=== PATIENT | female | born 2000 | race Caucasian/White ===

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

== ENCOUNTER 2019-03-16 14:01 | Emergency (ER) | payer MEDICAID, SELFPAY ==
[2019-03-16 14:02] VITALS: BP 117/76; PULSE 111; RESP 16; TEMP 36.6; O2SAT 98; BMI 17.3
[2019-03-16 15:20] LABS: Absolute Lymphocyte Count 1.03 X10^3/uL (0.83-4.51); Absolute Neutrophil Count 8.4 X10^3/uL (2.0-7.7); Basophil# 0.02 X10^3/uL; Basophil% 0.2 % (0-1); Eosinophil# 0.02 X10^3/uL; Eosinophils% 0.2 % (0-5); Hemoglobin 13.3 g/dL (12.0-15.0); Lymphocyte # 1.03 X10^3/ul (4.0); Lymphocyte % 10.1 % (19-41); Mean Corp Hgb Conc 32.4 g/dL (32-36); Mean Corpuscular Hgb 29.8 pg (27.0-32.0); Mean Corpuscular Volume 91.9 fL (81-99); Mean Platelet Vol. 10.1 fl (6.2-12.0); Monocyte% 6.9 % (0-10); NRBC Flagged by Analyzer 0 % (0-5); Neutrophil # 8.36 X10^3/uL (2.7-7.7); Neutrophil % 82.1 % (47-70); Platelet Count 239 K/mm3 (150-450); RBC Distribution Width CV 12.6 % (11.6-14.6); RBC Distribution Width SD 42.4 fl (35.1-43.9); Red Blood Count 4.46 M/mm3 (4.2-5.4); White Blood Count 10.2 K/mm3 (4.4-11.0)
[2019-03-16 15:34] LABS: Anion Gap 5 (5-15); BUN 7 mg/dL (7-18); BUN/Creat Ratio 9.4 RATIO (10-20); Calcium,Total 9.5 mg/dL (8.5-10.1); Chloride 109 mmol/L (98-107); Creatinine, Serum 0.74 mg/dL (0.55-1.02); EST Glomerular Filtration Rate 106 mL/min (>60); Est Glom Filt Rate - Afr Amer 128 mL/min (>60); Estimated Creatinine Clearance 88.44 ml/min; Glucose 83 mg/dL (74-106); Potassium 3.6 mmol/L (3.5-5.1); Sodium Level 142 mmol/L (136-145)
[2019-03-16 15:35] LABS: Internal QC Validated? YES +Cl - CLEAR BKGD; Pregnancy, Serum, hCG Quali. NEGATIVE Negative
[2019-03-16 15:40] LABS: Amphetamine Urine VISTA NEGATIVE (<1000 ng/mL); Barbiturate Urine VISTA NEGATIVE (< 200 ng/mL); Benzodiazepine Urine VISTA NEGATIVE (< 200 ng/mL); Cocaine Urine VISTA NEGATIVE (< 300 ng/mL); Ecstacy Urine VISTA NEGATIVE (< 500 ng/mL); Methadone Urine VISTA NEGATIVE (< 300 ng/mL); PCP Urine VISTA NEGATIVE (< 25 ng/mL); THC Urine VISTA POSITIVE (< 50 ng/mL); Vista UDS pH Range 6
[2019-03-16 15:46] LABS: Alcohol, Blood (Medical)-Serum < 3.0 mg/dL
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
[2019-03-16 16:25] LABS: AST(SGOT) 14 U/L (15-37); Alanine Aminotransfer ALT/SGPT 15 U/L (13-56); Albumin, Serum 4.3 g/dL (3.2-5.0); Alkaline Phosphatase 83 U/L (45-117); Bilirubin, Direct 0.12 mg/dL (0.00-0.30); Globulin 3.4 g/dL (2.2-4.2); Protein, Total 7.7 g/dL (6.4-8.2)
--- NOTE | 2019-03-16 16:31 | CM.ED ---
Social Work Offered to contact patient mother to update on current status/plan. Patient declining stating I will update her. Patient encouraged to asked for social worker delinquency prevention with any questions. Jose LOUISE, RACQUEL
--- NOTE | 2019-03-16 17:15 | ED.VIS.GEN ---
History of Present Illness Chief Complaint: Suicidal Informant: Patient Onset: Today Narrative: Patient states she does not wish to be on earth anymore. She states she is having issues with her baby katya. She states that the child's father has been in and out of her life. He continues to see other women. Today she went over to his house and there is another woman there and he was taking care of that woman's baby. She states that she proceeded to punch kraft and cut her right inner ankle. 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 She states that the child is with her mother. Past Medical History - Allergies and Home Meds Allergies/Adverse Reactions: Allergies No Known Allergies Allergy (Verified 12/13/18 15:10) Primary Care Physician: Greg Arriaga MD [Primary Care Provider] - Surgical History: no surgical history Smoking Status: Light Smoker (<10/day) Review of Systems General: Denies: Chills, Fever, Sweats Eyes: Denies: Visual changes - bilaterally, Diplopia ENT: Denies: Rhinorrhea, Sore throat Cardiovascular: Denies: Chest pain, Palpitations Respiratory: Denies: Dyspnea, Cough, Dyspnea on exertion Gastrointestinal: Denies: Abdominal pain, Nausea, Vomiting, Diarrhea, Melena, Hematochezia Genitourinary: Denies: Dysuria, Hematuria, Frequency Musculoskeletal: Denies: Back pain, Extremity Pain Skin: Denies: Rash, Wounds Neurological: Denies: Headache, Weakness, Numbness Psych: Reports: Depression, Suicidal thoughts, Suicidal ideations Physical Exam Vital Signs/Narrative: Vital Signs Temp Pulse Resp BP Pulse Ox 03/16/19 14:02 98 F 111 H 16 117/76 98 Inital Vital Signs reviewed: Yes General: Well nourished, Well developed, No Acute Distress Head: Normocephalic, Atraumatic Eyes: Perrl, EOMI ENT: Moist mucous membranes, No rhinorrhea Neck: Supple, Nontender Cardiovascular: Regular rate, Regular rhythm, No murmurs Respiratory: No distress, CTA bilaterally, Chest nontender Abdomen: Soft, Nontender, Nondistended, Normal bowel sounds Back: Nontender, Normal Inspection Extremities: No edema, Tenderness - Tender to palpation over the right third MCP joint. There is a contusion noted. Neurovascular intact. There are several superficial abrasions to the medial right ankle. Skin: Normal color, No rash Neurological: Alert, Oriented x3, Cranial nerves II-XII grossly intact, Normal Strength, Normal Sensation Psychological: Normal affect, Normal Mood Diagnostic/Tx/Re-eval - Medical Decision Making Psychiatric screening labs were obtained. She is cleared for crisis evaluation. The patient received a dose of Adacel. Wounds were cleansed and dressed. She was evaluated by social work and was felt that she should be admitted. ED Disposition - Plan for ED Patient: Disposition: Psychiatric Hospital or Unit Diagnosis: Suicidal ideation, Contusion, hand, Abrasion Referrals: Greg Arriaga MD [Primary Care Provider] -
--- NOTE | 2019-03-16 17:25 | CM.ED ---
Social Work Medically cleared per Dr. Waters. Clinical information faxed to [facility] for review. Pending approval. [facility] does accept patient insurance and they do have open beds. Jose LOUISE, RACQUEL
[2019-03-16 17:50] VITALS: BP 109/79; PULSE 94; RESP 14; O2SAT 98
[2019-03-16] MEDS: Diphth,Pertuss(Acell),Tet Vac 0.5 ML Vial IM (17:51)
--- NOTE | 2019-03-16 18:58 | CM.ED ---
Social Work Patient has been accepted by [address] Admitting: Kavitha Subramanian N.P. Nurse to call report to: [phone]. [place] [facility] faxed. Updated patient, nursing staff and doctor. Jose Nugent MSW, RACQUEL
== END 2019-03-16 20:48 ==
PROVIDERS: Emergency Medicine; Emergency Provider Emergency Medicine; Family Provider Family Medicine; PCP Family Medicine
DX: R45.851 Suicidal ideations (principal); S60.221A Contusion of right hand, initial encounter; S90.511A Abrasion, right ankle, initial encounter; W22.8XXA Striking against or struck by other objects, initial encounter; W45.8XXA Other foreign body or object entering through skin, initial encounter; Y93.89 Activity, other specified; Y92.009 Unspecified place in unspecified non-institutional (private) residence as the place of occurrence of the external cause; F17.200 Nicotine dependence, unspecified, uncomplicated
CPT/HCPCS: 73130; 80048; 80076; 80307; 80320; 84703; 85025; 90715; 99284; G0480

== ENCOUNTER 2020-05-07 15:39 | Emergency (ER) | payer MEDICAID, SELFPAY ==
[2020-05-07 15:40] VITALS: BP 109/50; PULSE 85; PULSE 88; RESP 16; TEMP 35.6; O2SAT 100; BMI 19.6
--- NOTE | 2020-05-07 16:03 | ED.VISSUMM ---
- ER Visit Summary Date of Service: 05/07/20 Chief Complaint: [Left chest wall pain] History of Present Illness: The patient is a 19 F [presents to the emergency department complaint of pain in her left chest wall that started 2 days ago. Patient states that she was coughing at the time and felt a sudden onset of pain in her left chest. She denies any injury. Patient states that at rest she really does not have any pain but when she moves or takes a deep breath she notices increased discomfort. Patient denies recent travel or surgery. She has no history of PE or DVT. She was seen in urgent care yesterday and had no imaging therefore her mom made her come to the ER to get evaluated. Patient thinks that there is some increased swelling on that side of her chest wall that she is concerned about. Patient otherwise has no medical history. She denies any recent illness or Covid exposures.] Physical Examination: [HEENT-PERRLA, EOMI. Cranial nerves II through XII grossly intact. TMs clear. Mucous membranes moist. No adenopathy. Cardiovascular-regular rate and rhythm without murmur or ectopy Lungs-clear to auscultation, chest wall stable without crepitus or subcu emphysema. Patient does have reproducible chest wall pain over the lower left anterior costal cartilages. No obvious deformity noted. Abdomen-normoactive bowel sounds, soft, nontender, no rebound or rigidity, no peritoneal signs. Extremities-intact ?4, normal range of motion, normal pulses, atraumatic] Test Results: [2 views chest x-ray obtained read by myself as no acute disease process. There is no evidence of pneumothorax or pneumomediastinum. No obvious rib fractures noted. Official report from radiology pending.] Emergency Department Course and Treatment: [] Treatment Plan: [Patient will be given a prescription for naproxen. Patient vies to follow-up with her primary care physician within next 5 to 7 days. Patient advised to return if increasing shortness of breath or condition should worsen anyway.] Disposition: [Discharged home in stable condition] Impression: [Left chest wall strain] This note was generated with [employer] dictation software. It may contain incorrect words, spelling, and punctuation that were not noted in review of the chart prior to signing ED Disposition - Plan for ED Patient: Referrals: Greg Arriaga MD [Primary Care Provider] -
--- NOTE | 2020-05-07 16:08 | RAD_ITS ---
STUDY: X-RAY CHEST REASON FOR EXAM: Female, 19 years old. Left chest wall pain TECHNIQUE: PA and lateral views of the chest. COMPARISON: None. FINDINGS: The lungs are clear and expanded. There is no demonstrated pleural abnormality. Normal size heart. Normal mediastinum and yady. Normal visualized pulmonary arteries. Normal visualized aortic arch and descending thoracic aorta. Normal visualized thoracic spine. Normal visualized ribs, clavicles, and shoulders. There is no demonstrated abnormality of the visualized soft tissue structures of the upper abdomen. RAD/Chest PA and Lateral IMPRESSION: Normal x-ray examination of the chest. Electronically Signed: Gino Mcadams MD at 16:21 EST , Service support ,
--- NOTE | 2020-05-07 16:18 | ED.DEP ---
ED Disposition - Plan for ED Patient: Instructions: ED Strain Chest Wall Prescriptions: Naproxen [Naprosyn] 500 mg PO BID PRN #20 tab Prescription Printed Referrals: Greg Arriaga MD [Primary Care Provider] - 5-7 Days
[2020-05-07 16:31] VITALS: PULSE 82; RESP 14; O2SAT 98
== END 2020-05-07 16:32 | disposition home or self-care (01) ==
LOC: ED 16:26
PROVIDERS: Emergency Provider Emergency Medicine; PCP Family Medicine
DX: S29.011A Strain of muscle and tendon of front wall of thorax, initial encounter (principal); X58.XXXA Exposure to other specified factors, initial encounter; Y93.89 Activity, other specified; Y92.9 Unspecified place or not applicable; Y99.9 Unspecified external cause status; Z72.0 Tobacco use
CPT/HCPCS: 71046; 99282

== ENCOUNTER 2020-09-08 21:42 | Emergency (ER) | payer MEDICAID, SELFPAY ==
[2020-09-08 21:42] VITALS: BP 118/77; PULSE 71; RESP 16; TEMP 36.2; O2SAT 97; BMI 20.5
--- NOTE | 2020-09-08 21:57 | CT_ITS ---
STUDY: CT ABDOMEN AND PELVIS WITHOUT CONTRAST REASON FOR EXAM: Female, 20 years old. right flank pain RADIATION DOSAGE (If Supplied By Facility): CTDIvol = ( 6.04 ) mGy, DLP = ( 288.42 ) mGycm TECHNIQUE: Transaxial images were obtained from the dome of the diaphragm to the symphysis pubis without oral contrast, and without intravenous contrast. Sagittal and coronal images were reconstructed. Individualized dose optimization techniques were used for this CT. COMPARISON: None. FINDINGS: The visualized lung bases are unremarkable. The visualized portions of the heart are within normal limits. Normal liver. Normal gallbladder and extrahepatic biliary system. Normal spleen. Normal pancreas. Normal bilateral adrenal glands. There are multiple punctate 1 mm or less calyceal stones scattered throughout the entire right kidney. A 3 mm calyceal stone is present in the upper pole of the left kidney. Multiple punctate calyceal stones are scattered throughout the mid and lower pole of the left kidney. No hydronephrosis is present. Normal visualized stomach. Normal small intestine. Normal colon. The appendix is visualized and appears normal. Normal abdominal aorta. Normal inferior vena cava. Normal retroperitoneum. Normal urinary bladder. Unremarkable uterus. Small calcifications are seen in the ovaries. Normal abdominal wall. There are diffuse degenerative changes of the visualized lumbar spine. CT/Abdomen/Pelvis without Cont IMPRESSION: Multiple bilateral nonobstructing kidney stones 1. There are multiple punctate 1 mm or less calyceal stones scattered throughout the entire right kidney. 2. A 3 mm calyceal stone is present in the upper pole of the left kidney. 3. Multiple punctate calyceal stones are scattered throughout the mid and lower pole of the left kidney. No hydronephrosis is present. Electronically Signed: Zane Concepcion MD at 23:14 EDT , Service support ,
--- NOTE | 2020-09-08 21:58 | EX.ED.DYSGE1 ---
HPI History of Present Illness Chief Complaint: Flank Pain Informant: patient Onset/Context/Timing Onset: Month(s) Timing: Intermittent Current Severity: Mild Maximum Severity: Moderate Narrative Narrative: Patient presents secondary to right flank pain. Patient states she is had this pain for several months. She points to the right lower flank region. She states when she pushes over the area does not recreate the pain. She is been seen by [facility] SERVICE OFFICER and a stomach doctor. Work-ups thus far have been unremarkable. Patient states pain does seem to be worse after she eats but is also worse with movement. She became concerned that she may have some problems with her kidneys and that has not been evaluated. Tonight the pain was very severe for several hours and unrelenting. She decided to come here for further evaluation and states the pain is now resolved. PFSH PFSH no medical history Home Medications no.144-folic acid [] 1 tab PO DAILY 09/08/20 [History Last Taken Unknown] Allergy/AdvReac Type Severity Reaction Status Date / Time No Known Allergies Allergy Verified 09/08/20 21:45 Surgical History (Updated 09/08/20 @ 22:00 by Jayme Sutherland) Hx of tonsillectomy Social History Smoking Status: Current every day smoker tobacco type: cigarettes ROS ROS ED Constitutional Constitutional ED: Denies chills or fever(s) Eyes Eyes: Denies change in vision ENT ENT ED: Denies sore throat Cardiovascular Cardiovascular: Denies chest pain Respiratory/Chest Respiratory/Chest: Denies cough or dyspnea Gastrointestinal Gastrointestinal: Denies abdominal pain, diarrhea, nausea or vomiting Genitourinary Genitourinary ED: Denies dysuria Musculoskeletal Musculoskeletal: Reports back pain Integumentary Denies rash Neurologic Neurologic: Denies headache(s) or weakness Psychiatric Psychiatric: Denies anxiety or depression Endocrine Endocrinology: Denies polydipsia or polyuria Allergic/Immunologic Allergic/Immunologic ED: Denies urticaria EXAM Physical Exam Const Vital Signs: 09/08/20 21:42 Temperature 97.2 F L Temperature Source Temporal Pulse Rate 71 Respiratory Rate 16 Blood Pressure 118/77 Blood Pressure Mean 90 Pulse Ox 97 Oxygen Delivery Method Room Air Positive well nourished and well developed General Appearance ED: well developed HEENT Reports normocephalic and head/scalp atraumatic Eyes PERRL and EOMs intact bilaterally Neck supple Chest Wall inspection of chest normal and palpation of chest normal Resp normal respiratory effort and clear to auscultation bilaterally Cardio regular rate and regular rhythm GI normal to inspection, nondistended, normoactive bowel sounds Palpation: soft Back/Spine no CVA tenderness Back/Spine Narrative: No reproducible midline or paraspinal tenderness. Extremity normal to inspection Neuro oriented x3 and no sensory deficits noted Sensorium / Orientation: alert Motor Exam: strength 5/5 throughout Psych mental status grossly normal Skin no rashes or lesions noted MDM MDM MDM Narrative Medical decision making narrative: Patient denies pain at present time. Lab work, urinalysis, CT flank are obtained. Lab Data Attestation: I reviewed the patient's lab results. Labs: Laboratory Results - last 24 hr 09/08/20 09/08/20 09/08/20 22:02 22:02 22:02 WBC 6.0 RBC 4.31 Hgb 13.1 Hct 39.8 MCV 92.3 MCH 30.4 MCHC 32.9 RDW Std Deviation 45.9 H RDW Coeff of Mohamud 13.3 Plt Count 213 MPV 10.9 Immature Gran % (Auto) 0.300 Neut % (Auto) 60.4 Lymph % (Auto) 28.9 [place] % (Auto) 9.6 Eos % (Auto) 0.3 Baso % (Auto) 0.5 Absolute Neuts (auto) 3.6 Absolute Lymphs (auto) 1.72 Nucleated RBC % 0 Sodium 137 Potassium 3.6 Chloride 103 Carbon Dioxide 26.0 Anion Gap 8 BUN 11 Creatinine 0.93 Estim Creat Clear Calc 79.16 Est GFR (MDRD) Af Amer 98 Est GFR (MDRD) Non-Af 81 BUN/Creatinine Ratio 11.9 Glucose 81 Calcium 9.2 Serum , Qual NEGATIVE Urine Color Urine Clarity Urine pH Ur Specific [place] Urine Protein Urine Glucose (UA) Urine Ketones Urine Occult Blood Urine Nitrite Urine Bilirubin Urine Urobilinogen Ur Leukocyte Esterase Urine RBC Urine WBC Ur Squamous Epith Cells Amorphous Sediment Urine Bacteria Urine Mucus 09/08/20 22:05 WBC RBC Hgb Hct MCV MCH MCHC RDW Std Deviation RDW Coeff of Mohamud Plt Count MPV Immature Gran % (Auto) Neut % (Auto) Lymph % (Auto) [place] % (Auto) Eos % (Auto) Baso % (Auto) Absolute Neuts (auto) Absolute Lymphs (auto) Nucleated RBC % Sodium Potassium Chloride Carbon Dioxide Anion Gap BUN Creatinine Estim Creat Clear Calc Est GFR (MDRD) Af Amer Est GFR (MDRD) Non-Af BUN/Creatinine Ratio Glucose Calcium Serum , Qual Urine Color Yellow Urine Clarity Sl. Cloudy Urine pH 6.0 Ur Specific [place] 1.020 Urine Protein 15 H Urine Glucose (UA) Normal Urine Ketones Negative Urine Occult Blood 25 H Urine Nitrite Negative Urine Bilirubin Negative Urine Urobilinogen Normal Ur Leukocyte Esterase 25 H Urine RBC 0-5 SEEN Urine WBC 0-5 SEEN Ur Squamous Epith Cells 5-10 SEEN Amorphous Sediment 1+ URATE Urine Bacteria 0 SEEN Urine Mucus 0 SEEN Radiography Diagnostic Testing: Radiology Impression Abdomen/Pelvis CT 09/08/20 21:57 IMPRESSION: Multiple bilateral nonobstructing kidney stones 1. There are multiple punctate 1 mm or less calyceal stones scattered throughout the entire right kidney. 2. A 3 mm calyceal stone is present in the upper pole of the left kidney. 3. Multiple punctate calyceal stones are scattered throughout the mid and lower pole of the left kidney. No hydronephrosis is present. Electronically Signed: Zane Concepcion MD at 23:14 EDT , Service support , Treatment and Re-Evaluation Comments:: On repeat exam patient is resting comfortably. She is had no further symptoms of pain while here. Lab work is unremarkable. Urinalysis does reveal urate crystals. CT scan reveals multiple bilateral nonobstructing kidney stones. We discussed these findings and advised her that the severe pain she was having earlier tonight may have been passing one of the stones. In light of the fact that she has such frequent symptoms I advised her I cannot guarantee that the frequent flank pain that she feels is all secondary to kidney stone. I will refer her to Dr. Bejarano, on-call for urology for follow-up. Discharge Plan Triage Chief Complaint: Flank Pain ED Provider: Gisella Bradley Dx/Rx/DC Orders Clinical Impression: Bilateral kidney stones Instructions: ED Kidney Stone Undescended No ... Prescriptions: No Action 400 mcg Tablet,Chewable 1 tab PO DAILY RF: 0 Primary Care Provider: Greg Arriaga Referrals: Sujey Bejarano MD [STAFF PHYSICIAN] - 1-2 Weeks Greg Arriaga MD [Primary Care Provider] - Disposition Disposition: Home, Self Care
[2020-09-08 22:10] LABS: Absolute Lymphocyte Count 1.72 X10^3/uL (0.83-4.51); Absolute Neutrophil Count 3.6 X10^3/uL (2.0-7.7); Basophil# 0.03 X10^3/uL; Basophil% 0.5 % (0-1); Eosinophil# 0.02 X10^3/uL; Eosinophils% 0.3 % (0-5); Hematocrit 39.8 % (37-47); Hemoglobin 13.1 g/dL (12.0-15.0); Lymphocyte # 1.72 X10^3/ul (0.83-4.51); Lymphocyte % 28.9 % (19-41); Mean Corp Hgb Conc 32.9 g/dL (32-36); Mean Corpuscular Hgb 30.4 pg (27.0-32.0); Mean Corpuscular Volume 92.3 fL (81-99); Mean Platelet Vol. 10.9 fl (6.2-12.0); Monocyte# 0.57 X10^3/uL; Monocyte% 9.6 % (0-10); NRBC Flagged by Analyzer 0 % (0-5); Neutrophil # 3.59 X10^3/uL (2.7-7.7); Neutrophil % 60.4 % (47-70); Platelet Count 213 K/mm3 (150-450); RBC Distribution Width CV 13.3 % (11.6-14.6); RBC Distribution Width SD 45.9 fl (35.1-43.9); Red Blood Count 4.31 M/mm3 (4.2-5.4)
[2020-09-08 22:13] LABS: Bacteria 0 SEEN /hpf (None Seen); Mucous, Urine 0 SEEN /hpf (<or=2+)
[2020-09-08 22:16] LABS: Color, Urine Yellow (Yellow); Glucose, Dipstick Normal (Normal); Ketone-Dipstick Negative (Negative); Leukocyte Esterase-Dipstick 25 /ul (Negative); Nitrite-Dipstick Negative (Negative); Occult Blood-Urine 25 /ul (Negative); Protein-Dipstick 15 mg/dl (Negative); Urine Bilirubin Dipstick Negative (Negative); Urine Clarity Sl. Cloudy (Clear); Urine Urobilinogen Normal (Normal)
[2020-09-08 22:26] LABS: Anion Gap 8 (5-15); BUN 11 mg/dL (7-18); BUN/Creat Ratio 11.9 RATIO (10-20); Calcium,Total 9.2 mg/dL (8.5-10.1); Chloride 103 mmol/L (98-107); Creatinine, Serum 0.93 mg/dL (0.55-1.02); EST Glomerular Filtration Rate 81 mL/min (>60); Est Glom Filt Rate - Afr Amer 98 mL/min (>60); Estimated Creatinine Clearance 79.16 ml/min; Glucose 81 mg/dL (74-106); Potassium 3.6 mmol/L (3.5-5.1); Sodium Level 137 mmol/L (136-145)
[2020-09-08 22:27] LABS: Internal QC Validated? YES +Cl - CLEAR BKGD; Pregnancy, Serum, hCG Quali. NEGATIVE Negative
[2020-09-08 22:34] LABS: Red Blood Cells-Urine 0-5 SEEN /hpf (0-5); Squamous Epithelial Cells - UA 5-10 SEEN /hpf (5-10); White Blood Cells 0-5 SEEN /hpf (0-5)
[2020-09-08 22:35] LABS: Amorphous Sediment 1+ URATE
[2020-09-08 23:31] VITALS: PULSE 76; RESP 16; O2SAT 98
== END 2020-09-08 23:31 | disposition home or self-care (01) ==
PROVIDERS: Emergency Provider Emergency Medicine; PCP Family Medicine
DX: N20.0 Calculus of kidney (principal); F17.210 Nicotine dependence, cigarettes, uncomplicated
CPT/HCPCS: 74176; 80048; 81001; 84703; 85025; 99283; A4216

== ENCOUNTER 2020-09-23 11:13 | Emergency (ER) | payer MEDICAID, SELFPAY ==
[2020-09-23 11:13] VITALS: BP 105/69; PULSE 73; RESP 18; TEMP 36.6; O2SAT 97; BMI 20.9
--- NOTE | 2020-09-23 11:34 | EDS_ITS ---
HPI HPI - Female History of Present Illness Chief Complaint: Abd Pain Detail of Chief Complaint: Pelvic pain Informant: patient Pain Pain: Positive for Pelvic Pain Onset: Days Context: Gradual Onset Timing: Intermittent Quality: Positive for Cramping Current Severity: Mild Maximum Severity: Mild Bleeding Issue: Positive for Vaginal bleeding; Negative for Passing tissue Onset: Today and Days Timing: Intermittent Severity: Mild Maximum Severity: Mild Associated Symptoms Associated Symptoms: Negative for Dysuria, Frequency, Urgency and Hematuria P: 1 Ab: 0 Narrative Narrative: 20-year-old female complaining of 2-day history of lower abdominal pelvic pain. States she is had some constipation has had limited bowel movements. Also states that she had a menstrual period from September 12-. And now is bleeding again. Denies any dysuria. Has been 1 time G1, P1 Ab0. No prior abdominal or pelvic surgeries. Prior similar symptoms: No Recent Illness/Hospitalization: No PFSH PFSH Home Medications no.144-folic acid [] 1 tab PO DAILY 09/08/20 [History Last Taken Unknown] Allergy/AdvReac Type Severity Reaction Status Date / Time No Known Allergies Allergy Verified 09/23/20 11:15 Surgical History Hx of tonsillectomy Social History Smoking Status: Current every day smoker tobacco type: cigarettes ROS ROS ED Review of Systems ROS Unobtainable: Denies due to encephalopathy Constitutional Constitutional ED: Denies chills or fever(s) Eyes Eyes: Denies change in vision ENT ENT ED: Denies ear pain or sore throat Cardiovascular Cardiovascular: Denies chest pain Respiratory/Chest Respiratory/Chest: Denies dyspnea or stridor Gastrointestinal Gastrointestinal: Reports abdominal pain and constipation; Denies diarrhea, melena, nausea or vomiting Genitourinary Genitourinary ED: Denies dysuria or hematuria Musculoskeletal Musculoskeletal: Denies arthralgias or myalgias Integumentary Denies rash Neurologic Neurologic: Denies headache(s) Psychiatric Psychiatric: Denies depression Endocrine Endocrinology: Denies polyuria Hematologic/Lymphatic Hematologic/Lymphatic: Denies easy bruising Allergic/Immunologic Allergic/Immunologic ED: Denies urticaria EXAM Physical Exam Narrative Exam Narrative: Well-appearing young female. Vital signs stable afebrile. Exam benign. Lungs are clear. Heart regular rhythm. Abdomen soft nontender nondistended normal bowel sounds no peritoneal signs. Suprapubic, right lower quadrant right upper quadrant unremarkable. No hernia or mass. No distention. No peritoneal signs. Otherwise exam normal. Const Vital Signs: 09/23/20 11:13 Temperature 97.9 F Temperature Source Temporal Pulse Rate 73 Respiratory Rate 18 Blood Pressure 105/69 Blood Pressure Mean 81 Pulse Ox 97 Oxygen Delivery Method Room Air HEENT Reports moist mucous membranes Negative for trauma or tenderness Eyes PERRL and EOMs intact bilaterally Neck no lymphadenopathy, supple and no JVD Thyroid: Negative for tender Chest Wall inspection of chest normal and palpation of chest normal Resp normal respiratory effort and clear to auscultation bilaterally Cardio regular rate, regular rhythm, S1 normal heart sound, no murmurs and no JVD GI normal to inspection, nondistended, normoactive bowel sounds, soft to palpation, non-tender, non-distended and no masses Auscultation: normoactive bowel sounds; Negative for hypoactive bowel sounds Palpation: Negative for tender, guarding or rigid no CVA tenderness Back/Spine no CVA tenderness General Back: Negative for CVA tenderness Cervical Spine: Negative for cervical spine tenderness Extremity normal to inspection and full ROM General Extremety ED: Negative for edema or tenderness General Extremity: Negative for edema Neuro oriented x3 and CN's II-XII intact bilaterally Sensorium / Orientation: alert, oriented to person, oriented to place and oriented to time Psych mental status grossly normal Skin no rashes or lesions noted MDM MDM MDM Narrative Medical decision making narrative: Young female with pelvic pain and constipation. Exam is benign. Urinalysis and urine test to be obtained. She will follow-up as an outpatient with [facility]. And be treated also as an outpatient for constipation. Repeat exam patient is doing well at 1:38 PM. Patient be discharged home with outpatient follow-up. Lab Data Attestation: I reviewed the patient's lab results. Lab results narrative: Urine shows blood but no white cells and no nitrites. Is most likely contaminant from her vaginal bleeding. test is negative. Labs: Laboratory Results - last 24 hr 09/23/20 11:55 Urine Color Yellow Urine Clarity Sl. Cloudy Urine pH 7.0 Ur Specific [place] 1.010 Urine Protein Negative Urine Glucose (UA) Normal Urine Ketones Negative Urine Occult Blood 250 H Urine Nitrite Negative Urine Bilirubin Negative Urine Urobilinogen Normal Ur Leukocyte Esterase Negative Urine RBC 25-50 SEEN Urine WBC 0 SEEN Ur Squamous Epith Cells 0-5 SEEN Urine Bacteria 1+ Urine Mucus 0 SEEN Urine Test Negative Discharge Plan Triage Chief Complaint: Abd Pain ED Provider: Naresh Ness Dx/Rx/DC Orders Clinical Impression: Vaginal bleeding Instructions: Understanding Uterine Bleeding Prescriptions: No Action 400 mcg Tablet,Chewable 1 tab PO DAILY RF: 0 Primary Care Provider: Greg Arriaga Referrals: Greg Arriaga MD [Primary Care Provider] - Anel Garcia MD [STAFF PHYSICIAN] - [facility] appointment Disposition Disposition: Home, Self Care
[2020-09-23 12:03] LABS: Mucous, Urine 0 SEEN /hpf (<or=2+); White Blood Cells 0 SEEN /hpf (0-5)
[2020-09-23 12:13] LABS: Color, Urine Yellow (Yellow); Glucose, Dipstick Normal (Normal); Ketone-Dipstick Negative (Negative); Leukocyte Esterase-Dipstick Negative /ul (Negative); Nitrite-Dipstick Negative (Negative); Occult Blood-Urine 250 /ul (Negative); Protein-Dipstick Negative (Negative); Urine Bilirubin Dipstick Negative (Negative); Urine Clarity Sl. Cloudy (Clear); Urine Urobilinogen Normal (Normal)
[2020-09-23 12:19] LABS: Bacteria 1+ /hpf (None Seen); Internal QC Validated? YES +Cl - CLEAR BKGD; Pregnancy, Urine Negative Negative; Red Blood Cells-Urine 25-50 SEEN /hpf (0-5); Squamous Epithelial Cells - UA 0-5 SEEN /hpf (5-10)
== END 2020-09-23 14:24 | disposition home or self-care (01) ==
PROVIDERS: Emergency Provider Emergency Medicine; PCP Family Medicine
DX: N93.9 Abnormal uterine and vaginal bleeding, unspecified (principal); F17.210 Nicotine dependence, cigarettes, uncomplicated
CPT/HCPCS: 81001; 81025; 99283

== ENCOUNTER 2020-12-03 17:58 | Emergency (ER) | payer MEDICAID, SELFPAY ==
[2020-12-03 17:59] VITALS: BP 109/81; PULSE 103; RESP 18; TEMP 36.8; O2SAT 99; BMI 20.4
--- NOTE | 2020-12-03 19:56 | ED.VIS.DENTA ---
HPI History of Present Illness Chief Complaint: Dental Narrative Narrative: 20-year-old female presenting with dental pain on the left mandible. She states she has been swelling since yesterday. Patient was on antibiotics for a couple of days late which she states was a low-dose amoxicillin. Her dentist did increase her amoxicillin 875 twice daily. She is taken 2 doses of this today and still complains of pain and swelling. She is not had a fever or chills. She is not having difficulty swallowing or breathing. Patient states she has a history of rectal canal in this area. She did not mean to call her dentist today but called somebody in [place] by mistake and did not set up an appointment. PFSH PFSH Medical History Kidney stones Smoker Home Medications amoxicillin 875 mg PO BID 12/03/20 [History Last Taken Unknown] clindamycin HCl 450 mg PO TID 10 Days #90 cap 12/03/20 [Rx Last Taken Unknown] hydrocodone-acetaminophen 1 tab PO Q6H PRN PRN 3 Days #10 tablet 12/03/20 [Rx Last Taken Unknown] Allergy/AdvReac Type Severity Reaction Status Date / Time No Known Allergies Allergy Verified 12/03/20 17:58 Surgical History Hx of tonsillectomy Social History Smoking Status: Current every day smoker tobacco type: e-cigarettes ROS ROS ED Constitutional Constitutional ED: Denies chills or fever(s) Eyes Eyes: Denies blurry vision or change in vision ENT ENT ED: Denies rhinorrhea or sore throat Cardiovascular Cardiovascular: Denies chest pain or palpitations Respiratory/Chest Respiratory/Chest: Denies cough or dyspnea Gastrointestinal Gastrointestinal: Denies abdominal pain or nausea Genitourinary Genitourinary ED: Denies dysuria or hematuria Musculoskeletal Musculoskeletal: Denies arthralgias or myalgias Integumentary Denies abscess or rash Neurologic Neurologic: Denies headache(s) or weakness EXAM Physical Exam Const Vital Signs: 12/03/20 17:59 Temperature 98.2 F Temperature Source Temporal Pulse Rate 103 H Respiratory Rate 18 Blood Pressure 109/81 H Blood Pressure Mean 90 Pulse Ox 99 Oxygen Delivery Method Room Air Positive well nourished General Appearance ED: NAD HEENT HEENT Narrative: Tenderness palpation of the mandibular teeth on the left. Facial swelling adjacent to this. No focal fluctuance. Tongue is not swollen. No sublingual edema. Mouth ED: Yes salivary gland normal Mouth: salivary gland normal Eyes PERRL and EOMs intact bilaterally Neck no lymphadenopathy and supple Resp normal respiratory effort and clear to auscultation bilaterally Cardio regular rate and regular rhythm Extremity normal to inspection Neuro oriented x3 Sensorium / Orientation: alert Psych mental status grossly normal Skin no rashes or lesions noted MDM MDM MDM Narrative Medical decision making narrative: Patient presenting for increased pain in the left jaw. She has a dentist but did not make an appointment today. She has been on amoxicillin low-dose and then will switch to amoxicillin 875 mg p.o. twice daily she took 2 doses of this today. She still has pain and swelling. She is given Melrose in the ED I will switch her to clindamycin. I counseled her to call her dentist tomorrow to set up an appointment as he is teeth that were involved in her previous surgery. Patient will be discharged home with prescription for clindamycin and Melrose. She given return precautions. Patient stable for discharge. Impression: 1. Dental infection Discharge Plan Triage Chief Complaint: Dental ED Provider: Jordan Hunt Dx/Rx/DC Orders Instructions: ED Dental Abscess Prescriptions: New clindamycin HCl 150 mg capsule 450 mg PO TID 10 Days Qty: 90 RF: 0 hydrocodone-acetaminophen 5-325 mg tablet 1 tab PO Q6H PRN PRN (Reason: Pain) 3 Days Qty: 10 RF: 0 No Action amoxicillin 875 mg Tablet 875 mg PO BID RF: 0 Primary Care Provider: Greg Arriaga Referrals: Greg Arriaga MD [Primary Care Provider] - Disposition Disposition: Home, Self Care Discharge Date/Time: 12/03/20 20:03
[2020-12-03] MEDS: Clindamycin HCl 150 MG Capsule 450 MG PO (20:00)
[2020-12-03] MEDS: HYDROcodone Bitartrate/Apap 5/325 Tablet PO (20:00)
== END 2020-12-03 20:03 | disposition home or self-care (01) ==
PROVIDERS: Emergency Provider Student in an Organized Health Care Education/Training Program; PCP Family Medicine
DX: K04.7 Periapical abscess without sinus (principal); F17.290 Nicotine dependence, other tobacco product, uncomplicated
CPT/HCPCS: 99282

== ENCOUNTER 2021-01-18 21:50 | Emergency (ER) | payer MEDICAID, SELFPAY ==
[2021-01-18 21:51] VITALS: BP 138/84; PULSE 99; RESP 16; TEMP 37.1; O2SAT 100; BMI 20.2
[2021-01-18 22:26] LABS: Bacteria 0 SEEN /hpf (None Seen); Mucous, Urine 0 SEEN /hpf (<or=2+); Squamous Epithelial Cells - UA 0 SEEN /hpf (5-10)
[2021-01-18 22:31] LABS: Color, Urine Yellow (Yellow); Glucose, Dipstick Normal (Normal); Leukocyte Esterase-Dipstick Negative /ul (Negative); Nitrite-Dipstick Negative (Negative); Occult Blood-Urine 150 /ul (Negative); Protein-Dipstick 15 mg/dl (Negative); Urine Bilirubin Dipstick Negative (Negative); Urine Clarity Clear (Clear); Urine Urobilinogen Normal (Normal)
[2021-01-18 22:42] LABS: Ketone-Dipstick 150 mg/dl (Negative)
--- NOTE | 2021-01-18 22:42 | US_ITS ---
STUDY: FIRST TRIMESTER OBSTETRICAL ULTRASOUND REASON FOR EXAM: Female, 20 years old pelvic pain, pos preg LMP: 12/27/2020. TECHNIQUE: Transvaginal TECHNICAL QUALITY: Adequate. PRIOR ULTRASOUND: None. FINDINGS: There is visualization of a single gestational sac in a normal intrauterine position. The mean sac diameter (MSD) measures 0.36 cm, indicating an estimated gestational age (EGA) of 5 weeks, 0 days. The gestational sac shape is within normal limits. There is a visualized yolk sac. The yolk sac measures 0.17 cm. The placenta is non-visualized. There is no demonstrated embryo ( pole). The estimated gestation age (EGA) by LMP is 5 weeks, 1 days. The estimated date of delivery (LYLE) by LMP is . The estimated gestation age (EGA) by US is 5 weeks, 0 days. The estimated date of delivery (LYLE) by US is 09/20/2021. The uterus measures 8.5 x 5.9 x 4.5 cm. There is no demonstrated uterine fibroid. The cervix is closed. There is abnormal echogenic fluid within the endometrial canal below the gestational sac. There is questionable abnormal shape of the uterus with possible septate uterus. The location of the gestational sac is suggested on the left. There is a small area of decreased echogenicity below the gestational sac may indicate subchorionic hemorrhage. The right ovary measures 3.1 x 2.8 x 2.4 cm. There is no right ovarian cyst. In the right ovary there is a right heterogeneous round structure with peripheral vascular flow, likely representing a corpus luteum cyst. This measures 1.7 x 1.3 x 1.4 cm. The left ovary measures 2.7 x 1.4 x 1.0 cm.. There is no left ovarian cyst. There is no visualized left adnexal mass or complex lesion. Part of the left adnexa obscured by peristaltic bowel. There is no fluid in the cul de sac. US/Transvaginal w/Preg US IMPRESSION: Intrauterine with ultrasound age of 5 weeks and 0 days and estimated date of delivery of 09/20/2021. In addition there is a slightly heterogeneous fluid collection along the endometrium, cannot exclude hemorrhage in the context of small subchorionic hemorrhage. Questionable septate uterus with follow-up recommended with ultrasound. This finding is recommended to be further evaluated with follow-up ultrasound and PAIN MANAGEMENT SPECIALIST consultation. Right-sided corpus luteum cyst. Remainder of the pelvic ultrasound unremarkable. N.B. : The above Results were Read Back by Marj Lorenz MD to Gino Alcantar MD, and understanding confirmed on 01/19/2021 01:48:04 (ET). Electronically Signed: Marj Lorenz MD at 1:30 EDT , Service support ,
[2021-01-18 22:45] LABS: Red Blood Cells-Urine 25-50 SEEN /hpf (0-5); White Blood Cells 0-5 SEEN /hpf (0-5)
[2021-01-18 22:46] LABS: Internal QC Validated? YES +Cl - CLEAR BKGD; Pregnancy, Urine Positive Negative
--- NOTE | 2021-01-18 22:52 | EDS_ITS ---
HPI HPI - Female History of Present Illness Chief Complaint: Abd Pain Informant: patient Pain Pain: Positive for Pelvic Pain Onset: Days (2-3) Context: Gradual Onset Timing: Continuous Quality: Positive for Aching Location: Suprapubic Current Severity: Moderate Maximum Severity: Moderate Worsened by: - (nothing) Relieved by: - (nothing) Bleeding Issue: Negative for Vaginal bleeding, Passing clots and Passing tissue Vaginal Discharge Severity: - (no vag discharge) Associated Symptoms Associated Symptoms: Positive for Missed Period; Negative for Dysuria, Frequen cy, Urgency and Hematuria Last known menstrual period: 12/13/2020 Test: Positive, Urine and Home Sexually: Positive for Active P: 1 Ab: 0 Narrative Narrative: Patient missed his menstrual cycle as a home positive test and 3 days ago developed pelvic pain. She denies any bleeding. She denies any injuries or falls. She states she feels safe at home. She cannot remember if she had pelvic pain during her other early or not. She has not had an appointment or an ultrasound yet. No recent illness. No trouble urinating. She has been constipated though, and having trouble having bowel movements, and she is wondering if it might be related to that. She denies any medic easy or melena. No nausea or vomiting. No history of any abdominal surgeries in the past. PFSH PFSH Medical History Kidney stones Smoker Home Medications amoxicillin 875 mg PO BID 12/03/20 [History Last Taken Unknown] clindamycin HCl 450 mg PO TID 10 Days #90 cap 12/03/20 [Rx Last Taken Unknown] hydrocodone-acetaminophen 1 tab PO Q6H PRN PRN 3 Days #10 tablet 12/03/20 [Rx Last Taken Unknown] tamsulosin 0.4 mg PO DAILY 01/18/21 [History Last Taken Unknown] PNV cmb#95-ferrous fumarate-FA [ Multivitamins] 1 tab PO DAILY #30 tab 01/19/21 [Rx Last Taken Unknown] Allergy/AdvReac Type Severity Reaction Status Date / Time No Known Allergies Allergy Verified 01/18/21 21:53 Surgical History Hx of tonsillectomy Social History Smoking Status: Current every day smoker tobacco type: e-cigarettes ROS ROS ED Constitutional Constitutional ED: Denies chills or fever(s) Eyes Eyes: Denies change in vision or diplopia ENT ENT ED: Denies rhinorrhea or sore throat Cardiovascular Cardiovascular: Denies chest pain or palpitations Respiratory/Chest Respiratory/Chest: Denies cough or dyspnea Gastrointestinal Gastrointestinal: Denies abdominal pain, diarrhea, nausea or vomiting Genitourinary Genitourinary ED: Denies dysuria or hematuria Musculoskeletal Musculoskeletal: Denies back pain or neck pain Integumentary Denies abscess or rash Neurologic Neurologic: Denies headache(s), paresthesias or weakness Psychiatric Psychiatric: Denies anxiety or suicidal thoughts EXAM Physical Exam Const Vital Signs: 01/18/21 21:51 Temperature 98.7 F Temperature Source Temporal Pulse Rate 99 Respiratory Rate 16 Blood Pressure 138/84 H Blood Pressure Mean 102 Pulse Ox 100 Oxygen Delivery Method Room Air Positive well nourished and well developed General Appearance ED: well developed and NAD HEENT Reports moist mucous membranes normocephalic and atraumatic Eyes PERRL and EOMs intact bilaterally Neck full ROM and supple Resp normal respiratory effort and clear to auscultation bilaterally Cardio regular rate, regular rhythm and no murmurs GI non-distended GI Narrative: Suprapubic tenderness, no guarding or rebound, no other abdominal or pelvic tenderness. Auscultation: normoactive bowel sounds Palpation: soft Back/Spine no CVA tenderness General Back: other FROM Extremity normal to inspection General Extremety ED: Negative for edema, pulses abnormal or tenderness General Extremity: Negative for edema or pulses abnormal Neuro oriented x3, CN's II-XII intact bilaterally and no sensory deficits noted Sensorium / Orientation: awake and alert Motor Exam: strength 5/5 throughout Skin no rashes or lesions noted and no wounds MDM MDM MDM Narrative Medical decision making narrative: Patient's urine test is positive confirming. I did a bedside ultrasound, I see what appears to be the uterus but I cannot see a pole or an obvious double decidual sign. Therefore an official ultrasound is ordered and the tech will be called in. Patient will be given Tylenol in the meantime, and a quant will be obtained. Quantitative hCG 1000. Official ultrasound shows single gestational sac and normal intrauterine position with LMP EGA 5 weeks 1 day, with LYLE 09/20/2021 and the pole is not visible. The radiologist called me out of concern that there is a subchorionic hemorrhage and there is a slight amount of heterogeneous fluid along the endometrium suggesting possible hemorrhage. She recommended that I call her experimental preflight mechanic about this. I discussed with Marly Galvan on for her OB group, she agreed that the patient can follow-up closely after the weekend. Lab Data Attestation: I reviewed the patient's lab results. Labs: Laboratory Results - last 24 hr 01/18/21 01/18/21 22:05 22:10 HCG, Quant 1000 H Urine Color Yellow Urine Clarity Clear Urine pH 6.0 Ur Specific [place] 1.020 Urine Protein 15 H Urine Glucose (UA) Normal Urine Ketones 150 A* Urine Occult Blood 150 H Urine Nitrite Negative Urine Bilirubin Negative Urine Urobilinogen Normal Ur Leukocyte Esterase Negative Urine RBC 25-50 SEEN Urine WBC 0-5 SEEN Ur Squamous Epith Cells 0 SEEN Urine Bacteria 0 SEEN Urine Mucus 0 SEEN Urine Test Positive H Discharge Plan Triage Chief Complaint: Abd Pain Other Complaint: ED Provider: Gino Alcantar Dx/Rx/DC Orders Clinical Impression: Threatened , Early stage of Instructions: ED Possible Miscarriage ... Prescriptions: New PNV cmb#95-ferrous fumarate-FA [ Multivitamins] 28 mg iron- 800 mcg tablet 1 tab PO DAILY Qty: 30 RF: 0 No Action amoxicillin 875 mg Tablet 875 mg PO BID RF: 0 clindamycin HCl 150 mg capsule 450 mg PO TID 10 Days Qty: 90 RF: 0 hydrocodone-acetaminophen 5-325 mg tablet 1 tab PO Q6H PRN PRN (Reason: Pain) 3 Days Qty: 10 RF: 0 tamsulosin 0.4 mg capsule 0.4 mg PO DAILY RF: 0 Primary Care Provider: Greg Arriaga Referrals: OB, your [Other] - 3-5 Days (at [facility], call for appt) Greg Arriaga MD [Primary Care Provider] - Disposition Disposition: Home, Self Care
[2021-01-18 23:19] LABS: hCG Titer Quant., Serum 1000 mIU/mL (1-3)
[2021-01-18] MEDS: Acetaminophen 500 MG Tablet 1000 MG PO (23:20)
[2021-01-19 01:31] VITALS: BP 109/88; PULSE 82; RESP 16; O2SAT 99
== END 2021-01-19 01:32 | disposition home or self-care (01) ==
PROVIDERS: Emergency Provider Emergency Medicine; PCP Family Medicine
DX: O20.0 Threatened abortion (principal); O99.331 Smoking (tobacco) complicating pregnancy, first trimester; F17.290 Nicotine dependence, other tobacco product, uncomplicated; Z3A.01 Less than 8 weeks gestation of pregnancy
CPT/HCPCS: 76817; 81001; 81025; 84702; 99283; A4216

== ENCOUNTER 2021-07-20 11:50 | Outpatient (CLI) | payer MEDICAID, SELFPAY ==
[2021-07-20 12:04] VITALS: BP 103/62; PULSE 103; TEMP 37
[2021-07-20 12:15] VITALS: BMI 24.3
[2021-07-20 13:36] LABS: Color, Urine Yellow (Yellow); Glucose, Dipstick Normal (Normal); Ketone-Dipstick 15 mg/dl (Negative); Leukocyte Esterase-Dipstick Negative /ul (Negative); Nitrite-Dipstick Negative (Negative); Occult Blood-Urine 25 /ul (Negative); Protein-Dipstick Negative (Negative); Specific Gravity, Urine 1.015 (1.002-1.030); Urine Bilirubin Dipstick Negative (Negative); Urine Clarity Clear (Clear); Urine Urobilinogen Normal (Normal)
[2021-07-20 13:50] LABS: Bacteria 1+ /hpf (None Seen); Red Blood Cells-Urine 0-5 SEEN /hpf (0-5); Squamous Epithelial Cells - UA 0-5 SEEN /hpf (5-10); White Blood Cells 0-5 SEEN /hpf (0-5)
--- NOTE | 2021-07-20 20:14 | OB.TRI.NOTE ---
HPI - General HPI Narrative JOCELYN SOLORZANO, is a 21 F at 31.2 weeks gestation who presents to triage with decreased movement and mild abdominal cramping. She has not been feeling well the past couple of days and had emesis several times yesterday. Able to keep small amount of liquids down today. Maternal Data Information LYLE Calculator Estimated Delivery Date Method Current WG Current Estimate 09/19/21 Manual 31w 2d PFSH PFSH Medical History Kidney stones Smoker Home Medications PNV cmb#95-ferrous fumarate-FA [ Multivitamins] 1 tab PO DAILY #30 tab 01/19/21 [Rx Last Taken 07/19/21 10:00] ferrous sulfate [Iron (ferrous sulfate)] 325 mg PO DAILY 07/20/21 [History Last Taken 07/19/21 10:00] Allergy/AdvReac Type Severity Reaction Status Date / Time No Known Allergies Allergy Verified 07/20/21 12:15 Surgical History Hx of tonsillectomy Social History Smoking Status: Current every day smoker tobacco type: e-cigarettes History Elective abortions Hx Para 0 Spontaneous abortions Hx # Term Pregnancies Ectopic pregnancies Hx # Pregnancies Multiple births # of living children ROS Eyes Eyes: Denies blurry vision Cardiovascular Cardiovascular: Reports none; Denies chest pain at rest, chest pain with activity or dizziness Respiratory/Chest Respiratory/Chest: Denies cough or dyspnea Gastrointestinal Gastrointestinal: Reports none and other; Denies diarrhea or vomiting Genitourinary Genitourinary: Denies dysuria Musculoskeletal Musculoskeletal: Reports none Integumentary Integumentary: Reports none; Denies rash Neurologic Neurologic: Denies dizziness, headache(s) or other visual disturbances Psychiatric Psychiatric: Reports none Physical Exam Const alert and no apparent distress General Appearance: cooperative Orientation / Consciousness: awake Exam Limitations: no limitations HEENT normocephalic Eyes General Eye: normal appearance of both eyes Neck full ROM Chest inspection of chest normal Resp normal respiratory effort and normal air movement Effort and Inspection: symmetric chest movement Auscultation: clear to auscultation bilaterally Cardio regular rate GI soft to palpation, non-tender and non-distended Inspection: and other Back/Spine normal ROM Extremity full ROM, normal capillary refill and no calf tenderness Skin no rashes or lesions noted Neuro oriented x3 and CN's II-XII intact bilaterally Psych mental status grossly normal NST FHR Rate Baby A Baseline: 140 Variability:: Moderate NST Reactive:: Appropriate for gestational age Uterine Activity:: None noted Assessment & Plan (1) Decreased movement: QUALIFIERS: Fetus number: single or unspecified fetus Trimester: third trimester Qualified Code(s): O36.8130 - Decreased movements, third trimester, not applicable or unspecified (2) Abdominal cramping: PLAN: Patient has felt movement since arrival to unit UA - + ketones, blood, and bacteria- Culture sent Start Macrobid 100 mg PO BID x 7 days Increase PO fluid intake Contact office if unable to keep any food or liquids down for 24 hours D/C home with follow up in office
== END 2021-07-20 14:20 | disposition home or self-care (01) ==
LOC: WPOUT 12:00 → WP 12:01
PROVIDERS: PCP Family Medicine; Referring Provider Advanced Practice Midwife; Visit Provider Advanced Practice Midwife
DX: O36.8130 Decreased fetal movements, third trimester, not applicable or unspecified (principal); F17.290 Nicotine dependence, other tobacco product, uncomplicated; O99.333 Smoking (tobacco) complicating pregnancy, third trimester; O26.893 Other specified pregnancy related conditions, third trimester; O99.891 Other specified diseases and conditions complicating pregnancy; O09.10 Supervision of pregnancy with history of ectopic pregnancy, unspecified trimester; Z3A.31 31 weeks gestation of pregnancy; R10.9 Unspecified abdominal pain
CPT/HCPCS: 59025; 59050; 81001; 87086; 87088; 99218; G0378

== ENCOUNTER 2021-09-16 23:28 | Inpatient (IN) | payer MEDICAID, SELFPAY ==
[2021-09-16 21:45] VITALS: BP 121/73; PULSE 80
[2021-09-16 21:46] VITALS: TEMP 36.7
--- NOTE | 2021-09-16 23:34 | PCM.HP.OB ---
HPI - General General Date of Admission: 09/16/21 Date of Service: 09/16/21 Chief Complaint: contractions HPI Narrative JOCELYN SOLORZANO, is a 21 F @ 39.4 weeks who presents c/o contractions. denies VB, LOF. Maternal Data Information LYLE Calculator Estimated Delivery Date Method Current WG Current Estimate 09/19/21 Manual 39w 4d Final LYLE: 09/19/21 Gestational age: 39.4 PFSH PFSH Medical History Kidney stones Smoker Home Medications vit no.95-ferrous fumarate 28 mg-folic acid 800 mcg tablet ( Multivitamins) 1 tab PO DAILY #30 tabs 01/19/21 [Rx Last Taken 07/19/21 10:00] ferrous sulfate 325 mg (65 mg iron) tablet (Iron (ferrous sulfate)) 325 mg PO DAILY anemia 07/20/21 [History Last Taken 07/19/21 10:00] Allergy/AdvReac Type Severity Reaction Status Date / Time No Known Allergies Allergy Verified 07/20/21 12:15 Surgical History Hx of tonsillectomy Social History Smoking Status: Current every day smoker tobacco type: e-cigarettes History Elective abortions Hx Para 0 Spontaneous abortions Hx # Term Pregnancies Ectopic pregnancies Hx # Pregnancies Multiple births # of living children NST FHR Rate Baby A Baseline: 140 Variability:: Moderate Accelerations:: 15 x 15 Decelerations:: None NST Reactive:: Yes FHR Category:: Category I Uterine Activity:: q3-6min Vital Signs Vital Signs Vital Signs: 09/16/21 21:45 09/16/21 21:45 09/16/21 21:46 Temperature Temperature Source Temporal Pulse Rate 80 Blood Pressure 121/73 H BP Systolic 121 BP Diastolic 73 09/16/21 21:46 Temperature 98.1 F Temperature Source Pulse Rate Blood Pressure BP Systolic BP Diastolic Physical Exam Const alert and oriented x3 General Appearance: cooperative HEENT normocephalic GI GI Narrative: Gravid, non tender to palpation. OB / External & Speculum: external exam normal Extremity normal to inspection Skin no rashes or lesions noted Neuro oriented x3 and CN's II-XII intact bilaterally Psych Appearance: grossly normal Labs Labs Labs: Blood Type O NEGATIVE Antibody Screen NEGATIVE Hct 39.8 % (37-47) Hgb 13.1 g/dL (12.0-15.0) Obstetrics US Rhogam given: Yes Assessment & Plan (1) Active labor: (2) 39 weeks gestation of : PLAN: Plan Admit to L&D [facility] FHR/TOCO Epiduralfor pain Monitor VS Anticipate gbs prophylaxis- PCN
[2021-09-17] VITALS (33 sets, daily range): BP systolic 93–134; BP diastolic 52–71; PULSE 69–123; RESP 16; TEMP 36.3–36.6; O2SAT 86–100; BMI 23.3
[2021-09-17] MEDS: Lactated Ringers 1,000 ML 200 ML IV
[2021-09-17] MEDS: LACTATED RINGERS 500 ML 999 ML IV (00:03)
[2021-09-17 00:18] LABS: Absolute Lymphocyte Count 1.72 X10^3/uL (0.83-4.51); Absolute Neutrophil Count 6.5 X10^3/uL (2.0-7.7); Basophil# 0.03 X10^3/uL; Basophil% 0.3 % (0-1); Eosinophil# 0.02 X10^3/uL; Eosinophils% 0.2 % (0-5); Hematocrit 35.2 % (37-47); Hemoglobin 11.7 g/dL (12.0-15.0); Lymphocyte # 1.72 X10^3/ul (0.83-4.51); Mean Corp Hgb Conc 33.2 g/dL (32-36); Mean Corpuscular Hgb 30.5 pg (27.0-32.0); Mean Corpuscular Volume 91.7 fL (81-99); Mean Platelet Vol. 11.8 fl (6.2-12.0); Monocyte# 0.67 X10^3/uL; Monocyte% 7.4 % (0-10); NRBC Flagged by Analyzer 0 % (0-5); Neutrophil # 6.52 X10^3/uL (2.7-7.7); Neutrophil % 72.1 % (47-70); POSITIVE COUNT YES; Platelet Count 194 K/mm3 (150-450); RBC Distribution Width CV 15.9 % (11.6-14.6); RBC Distribution Width SD 50.8 fl (35.1-43.9); Red Blood Count 3.84 M/mm3 (4.2-5.4); White Blood Count 9.1 K/mm3 (4.4-11.0)
[2021-09-17 00:20] LABS: Differential Indicated SCAN CRITERIA MET
[2021-09-17 01:11] LABS: Amphetamine Urine VISTA NEGATIVE (<1000 ng/mL); Barbiturate Urine VISTA NEGATIVE (< 200 ng/mL); Benzodiazepine Urine VISTA NEGATIVE (< 200 ng/mL); Cocaine Urine VISTA NEGATIVE (< 300 ng/mL); Ecstacy Urine VISTA NEGATIVE (< 500 ng/mL); Methadone Urine VISTA NEGATIVE (< 300 ng/mL); PCP Urine VISTA NEGATIVE (< 25 ng/mL); THC Urine VISTA POSITIVE (< 50 ng/mL); Vista UDS pH Range 7
[2021-09-17] MEDS: fentaNYL-bupivacaine (epidural) 100 ML BAG EPIDURAL (01:13)
[2021-09-17 01:36] LABS: Differential Comment SCANNED
[2021-09-17] MEDS: Oxytocin 30 units/NS 500 ml 30 UNITS/500 ML IV.SOLN 334 UNITS IV (02:15)
--- NOTE | 2021-09-17 02:19 | EX.PCM.OBRPT ---
Assessment & Plan (1) Vaginal delivery: Maternal Data Information LYLE Calculator Estimated Delivery Date Method Current WG Current Estimate 09/19/21 Manual 39w 5d Vaginal Delivery Maternal Presentation Maternal Presentation: Active Labor Operative Information Date of Procedure: 09/17/21 Pre-Operative Diagnosis: term gestation, active labor Post-Operative Diagnosis: same, live male infant Surgery / Procedure Performed: Spontaneous Vaginal Delivery Type of Anesthesia: Epidural Estimated Blood Loss: 200 Time of Delivery: 02:09 Findings Description of Procedure: Patient progressed to fully dilated. AROM was performed. Clear fluid. Good maternal pushing efforts delivered the 's head gentle downward traction deliver the anterior shoulder followed by the rest the 's body. The was vigorous and placed on the mother's chest for immediate skin to skin. Delayed cord clamping was performed. Pitocin was started and the placenta was senior living in the vaginal canal but it appeared to be adherent to the fundal aspect of the uterus. At this time manual exploration was performed and was released from the fundal portion the placenta was then delivered, repeat exam performed and placental tissue was removed from the uterus. At this time no further membranes or retained products were palpated. Fundus was firm. It appeared that all sections of the placenta were removed after evaluation. Vaginal tissue intact no lacerations. Presentation: Vertex Amniotic Membrane Rupture Type: Artificial Amniotic Fluid Description: Clear Placental Delivery Description: Expressed and Manual Removal Placenta Disposition: [facility] Cord Vessel Description: 3 Vessels Cord Entanglement: None A Gender: Male (1 minute): 8 (5 minute): 9 Delayed Cord Clamping: Yes Post Vaginal Delivery Medications Given After Delivery: IV Pitocin Episiotomy Description: None Laceration: None Complication Complications: None
[2021-09-17] MEDS: Ibuprofen 600 MG Tablet PO ×2 (08:53→17:33)
[2021-09-18 01:20] VITALS: BP 101/56; PULSE 71; RESP 16; TEMP 36.4; O2SAT 96
[2021-09-18] MEDS: Ibuprofen 600 MG Tablet PO (03:06)
--- NOTE | 2021-09-18 07:00 | NURSING ---
All charting by Tevin Mcleod RN reviewed by this preceptor RN.
--- NOTE | 2021-09-18 08:48 | PCM.PN.OB ---
Subjective Subjective Denies complaints Objective Data Objective Data Vital Signs: Vital Signs Temp Pulse Resp BP Pulse Ox O2 Del Method 97.5 F L 71 16 101/56 L 96 Room Air 09/18/21 01:20 09/18/21 01:20 09/18/21 01:20 09/18/21 01:20 09/18/21 01:20 09/18/21 01:20 Oxygen Delivery Method Room Air Weight: 132 lb 2 oz Body Mass Index (BMI) 23.3 Intake & Output: Intake and Output for Last 24 Hours 09/16/21 09/17/21 09/18/21 23:59 23:59 23:59 Intake Total 1628.33 / 1628.33 Output Total 600 / 600 Balance 1028.33 / 1028.33 Lab / Micro Data Result Diagrams: 09/16/21 23:50 Micro: Microbiology 09/17/21 00:14 Nasal Secretion SARS-CoV-2 Antigen (Rapid) - Final Physical Exam Const alert, oriented x3 and no apparent distress HEENT normocephalic GI soft to palpation, non-tender and non-distended GI Narrative: fundus firm, mid & below umbilicus Extremity normal to inspection and no calf tenderness Assessment & Plan (1) Vaginal delivery: COMMENT: PPD#1 PLAN: D/c home
--- NOTE | 2021-09-18 08:52 | DCINST_ITS ---
Discharge Instructions Diet Discharge Diet: No restrictions Activity Discharge Activity: May Shower May resume sexual activity in: 6 weeks Weight Bearing Status: Weight bearing as tolerated Dressing / Incision Call your doctor if you observe: Fever of 101 or Higher, Coldness, Increased Pain, Change in Color, Inability to urinate, Inability to have a bowel movement, Using more than 1 pad per hour, Shortness of breath, Dizziness, Fainting spells, Chest pain, Increased palpitations (irregular heartbeat), Calf discomfort and Uncontrolled pain Follow Up Care Please Follow Up With: Igor Calzada MD When: Follow up in 2 and 6 weeks for visits. Test Results: Test results from this visit will be discussed in further detail at your follow- up appointment, if applicable. Discharge Plan Admission Admit Date/Time: 09/16/21 23:28 Primary Reason for Your Visit: Vaginal delivery Attending Provider: Lianet Lockwood Primary Care Provider: Greg Arriaga Discharge Orders/Prescriptions Prescriptions: New acetaminophen 500 mg Tablet 1,000 mg PO Q6H PRN PRN (Reason: Pain 1-10 Or Fever) Qty: 0 0RF ibuprofen 600 mg Tablet 600 mg PO Q6H PRN PRN (Reason: Pain Score 1-3) Qty: 0 0RF Continued PNV cmb#95-ferrous fumarate-FA [ Multivitamins] 28 mg iron- 800 mcg tablet 1 tab PO DAILY Discontinued ferrous sulfate [Iron (ferrous sulfate)] 325 mg (65 mg iron) Tablet 325 mg PO DAILY Referrals / Follow Up: Greg Arriaga MD [Primary Care Provider] - Disposition Disposition (needs filled in before D/C Order can be placed): Home, Self Care
[2021-09-18 10:02] VITALS: BP 100/58; PULSE 75; RESP 16; TEMP 36.3; O2SAT 96
[2021-09-18 13:43] VITALS: BP 94/62; PULSE 72; RESP 16; TEMP 36.3; O2SAT 98
--- NOTE | 2021-09-23 13:09 | NURSING ---
follow up phone call completed
== END 2021-09-18 14:25 | disposition home or self-care (01) | DRG 560 ==
LOC: WPOUT 23:31 → WP 23:31
PROVIDERS: Admitting Provider Obstetrics & Gynecology; PCP Family Medicine; Visit Provider Obstetrics & Gynecology
DX: O99.334 Smoking (tobacco) complicating childbirth (principal); Z37.0 Single live birth; F17.290 Nicotine dependence, other tobacco product, uncomplicated; Z3A.39 39 weeks gestation of pregnancy; Z86.19 Personal history of other infectious and parasitic diseases
CPT/HCPCS: 59025; 59050; 80307; 85025; 85461; 86850; 86900; 86901; 87426; 90384; 99218; J7120; G0378; J2790

== ENCOUNTER 2022-06-29 14:41 | Emergency (ER) | payer MEDICAID, SELFPAY ==
[2022-06-29 14:42] VITALS: BP 110/77; PULSE 105; RESP 14; TEMP 36.7; O2SAT 100; BMI 18.0
--- NOTE | 2022-06-29 14:53 | ED.VIS.GI ---
HPI <Dr. González Park MD - Last Filed: 07/06/22 11:14> HPI - GI History of Present Illness Chief Complaint: Nausea/Vomiting/Diarrhea Detail of Chief Complaint: Thirst, dry mouth, nausea, vomiting diarrhea and abdominal pain Informant: patient Abdominal Pain/Flank Pain Onset: Days (I want that 4 days ago.) Context: Sudden Onset Timing: Continuous (Upper abdominal pain has been constant onset intermittent back pain) Quality: Sharp Location: Epigastric Current Severity: Mild Maximum Severity: Moderate Worsened by: Nothing Relieved by: Nothing Nausea/Vomiting/Emesis GI Symptom: Positive for Nausea and Vomiting Onset: Days Severity: Mild Episodes: 2 Diarrhea/Melena/Hematochezia GI Symptom: Positive for Diarrhea; Negative for Melena or Hematochezia Onset: Days Stool Quality: Positive for Loose and Watery; Negative for Mucous, Black, Maroon or BRB per rectum Severity: Severe Episodes: 10 Associated Symptoms Associated Symptoms: Negative for Dysuria, Frequency, Hematuria or Urgency Narrative Narrative: Patient is a 22-year-old who presents with epigastric sharp pain that initially radiate through to her back associated with nausea, vomiting diarrhea. She is averaging 2 emesis a day. She is averaging 10+ loose watery stools a day. No ill contacts. No fever or chills. Started while at work on Wednesday. No one at home is ill. She denies history inflammatory bowel disorder. She does endorse dry mouth, thirst and lightheadedness. She states she is lost weight. Review of prior records decays patient's been in the emergency department for headache, early , and minimal symptoms. She delivered September 2021. She has not been using drugs because she is on probation. Prior similar symptoms: No Recent Illness/Hospitalization: No PFSH <Dr. González Park MD - Last Filed: 07/06/22 11:14> PFSH Medical History Chlamydia infection affecting Depression Kidney stones Smoker Home Medications acetaminophen 500 mg tablet 1,000 mg PO Q6H PRN PRN Pain 1-10 Or Fever #0 tabs 09/18/21 [Rx Last Taken Unknown] ibuprofen 600 mg tablet 600 mg PO Q6H PRN PRN Pain Score 1-3 #0 tabs 09/18/21 [Rx Last Taken Unknown] ondansetron 4 mg disintegrating tablet 4 mg PO Q8H PRN PRN Nausea #10 tabs 06/29/22 [Rx Last Taken Unknown] Allergy/AdvReac Type Severity Reaction Status Date / Time No Known Allergies Allergy Verified 06/29/22 15:15 Surgical History Hx of tonsillectomy Social History (Updated 06/29/22 @ 14:[address] González Park MD) household members: children Smoking Status: Current every day smoker tobacco type: e-cigarettes substance use type: does not use ROS <Dr. González Park MD - Last Filed: 07/06/22 11:14> ROS ED Constitutional Constitutional ED: Denies chills, fever(s), subjective, sweats or weight loss ENT ENT ED: Denies ear pain, rhinorrhea or sore throat Cardiovascular Cardiovascular: Denies chest pain, palpitations or racing heartbeat Respiratory/Chest Respiratory/Chest: Denies cough, dyspnea or dyspnea on exertion Gastrointestinal Gastrointestinal: Reports abdominal pain, diarrhea, nausea and vomiting Genitourinary Genitourinary ED: Denies dysuria, hematuria or urinary frequency Musculoskeletal Musculoskeletal: Reports back pain; Denies arthralgias, myalgias or neck pain Integumentary Denies rash Neurologic Neurologic: Denies headache(s), paresthesias or weakness Psychiatric Psychiatric: Denies anxiety or depression Endocrine Endocrinology: Denies polydipsia, polyphagia or polyuria Hematologic/Lymphatic Hematologic/Lymphatic: Denies easy bleeding or easy bruising EXAM <Dr. González Park MD - Last Filed: 07/06/22 11:14> Physical Exam Const Vital Signs: 06/29/22 14:42 06/29/22 16:55 06/29/22 18:07 Temperature 98.0 F Temperature Source Temporal Pulse Rate 105 H 78 73 Respiratory Rate 14 17 16 Blood Pressure 110/77 91/56 L 108/56 L Blood Pressure Mean 88 67 73 Pulse Ox 100 99 99 Oxygen Delivery Method Room Air Room Air Room Air 06/29/22 19:16 Temperature Temperature Source Pulse Rate 82 Respiratory Rate 17 Blood Pressure 112/69 Blood Pressure Mean Pulse Ox 99 Oxygen Delivery Method Positive well nourished and well developed Constitutional Narrative: Patient appears ill but not toxic. General Appearance ED: well developed; Negative for pallor HEENT Reports dry mucous membranes normocephalic and atraumatic Mouth ED: Yes dry mucous membranes Mouth: dry mucous membranes Eyes PERRL and EOMs intact bilaterally General Eye ED: Negative for pale conjunctiva or scleral icterus Neck no lymphadenopathy, supple and no JVD Resp normal respiratory effort and clear to auscultation bilaterally Cardio regular rhythm, S1 normal heart sound, S2 normal heart sound and no murmurs Rate: tachycardic GI non-distended and no masses; Negative for non-tender Auscultation: hypoactive bowel sounds Palpation: soft and tender epigastric Back/Spine no CVA tenderness Lumbar Spine / Lower Back: Negative for lumbar spinal tenderness Extremity full ROM General Extremety ED: Negative for edema or tenderness General Extremity: Negative for edema Neuro CN's II-XII intact bilaterally, moves all extremities, no sensory deficits noted and gait normal Sensorium / Orientation: alert Psych mental status grossly normal and thought process normal Skin no wounds General Skin Exam: Negative for jaundice or pallor Lesions: no lesions Rashes: no rashes <Dr. Naresh Ness MD - Last Filed: 06/29/22 21:30> Physical Exam Const Vital Signs: 06/29/22 14:42 06/29/22 16:55 06/29/22 18:07 Temperature 98.0 F Temperature Source Temporal Pulse Rate 105 H 78 73 Respiratory Rate 14 17 16 Blood Pressure 110/77 91/56 L 108/56 L Blood Pressure Mean 88 67 73 Pulse Ox 100 99 99 Oxygen Delivery Method Room Air Room Air Room Air 06/29/22 19:16 Temperature Temperature Source Pulse Rate 82 Respiratory Rate 17 Blood Pressure 112/69 Blood Pressure Mean Pulse Ox 99 Oxygen Delivery Method [facility] <Dr. González Park MD - Last Filed: 07/06/22 11:14> [facility] Narrative Medical decision making narrative: 20Patient's history and physical is consistent with viral gastroenteritis. Patient denies history of pseudomembranous colitis and has no risk factors. Clinically she appears dehydrated. 1 L normal saline was ordered. Zofran was ordered for her nausea and Imodium for her diarrhea. Since she is 22 years of age with no past medical history and no diuretics electrolyte panel was not obtained. The nurse informed me at that patient now knowledges she was on antibiotics. She was on antibiotic for STI and UTI as well as yeast infection. In light of this new information we will test stool for C. difficile. History & Record Review Additional record(s) reviewed:: Prior outpatient record (Summarized in the HPI narrative), Prior ED visit (Summarized in the HPI narrative) and Prior labs (No significant abnormalities.) Lab Data Attestation: I reviewed the patient's lab results. Lab results narrative: Urine is slightly cloudy with soft gravity 1.020 and positive for protein, ketones and occult blood. This is consistent with dehydration Labs: Laboratory Results - last 24 hr 06/29/22 14:58 Urine Color Yellow Urine Clarity Sl. Cloudy Urine pH 6.5 Ur Specific [place] 1.020 Urine Protein 30 H Urine Glucose (UA) Normal Urine Ketones 15 H Urine Occult Blood 250 H Urine Nitrite Negative Urine Bilirubin 1 H Urine Urobilinogen Normal Ur Leukocyte Esterase 25 H <Dr. Naresh Ness MD - Last Filed: 06/29/22 21:30> [facility] MDM Narrative Medical decision making narrative: 20Patient's history and physical is consistent with viral gastroenteritis. Patient denies history of pseudomembranous colitis and has no risk factors. Clinically she appears dehydrated. 1 L normal saline was ordered. Zofran was ordered for her nausea and Imodium for her diarrhea. Since she is 22 years of age with no past medical history and no diuretics electrolyte panel was not obtained. The nurse informed me at that patient now knowledges she was on antibiotics. She was on antibiotic for STI and UTI as well as yeast infection. In light of this new information we will test stool for C. difficile. Patient turned over to me from Dr. González Park. Its been 3+ hours. Her C. difficile the lab was delayed to do the test because something else was running. It will be 2 more hours from now. Patient did not want to wait I went and discussed with her I will check the test results and notify her if it is positive. Clinically she looks well. Her abdomen is benign and she is doing well. C. difficile stool test returned I reviewed at 9:28 PM and it was negative. Lab Data Labs: Laboratory Results - last 24 hr 06/29/22 14:58 Urine Color Yellow Urine Clarity Sl. Cloudy Urine pH 6.5 Ur Specific [place] 1.020 Urine Protein 30 H Urine Glucose (UA) Normal Urine Ketones 15 H Urine Occult Blood 250 H Urine Nitrite Negative Urine Bilirubin 1 H Urine Urobilinogen Normal Ur Leukocyte Esterase 25 H Discharge Plan Triage Chief Complaint: Nausea/Vomiting/Diarrhea Other Complaint: Abd Pain ED Provider: González Park Dx/Rx/DC Orders Clinical Impression: Abdominal pain, vomiting, and diarrhea, Ketosis, Acute dehydration Instructions: ED Vomiting and Diarrhea ... Prescriptions: New ondansetron [ondansetron] 4 mg tablet,disintegrating 4 mg PO Q8H PRN PRN (Reason: Nausea) Qty: 10 0RF No Action acetaminophen 500 mg Tablet 1,000 mg PO Q6H PRN PRN (Reason: Pain 1-10 Or Fever) Qty: 0 0RF ibuprofen 600 mg Tablet 600 mg PO Q6H PRN PRN (Reason: Pain Score 1-3) Qty: 0 0RF Stand Alone Forms: ED Work / School Excuse, Work / School Excuse Primary Care Provider: Greg Arriaga Referrals: Greg Arriaga MD [Primary Care Provider] - 3-5 Days if not improving Disposition Disposition: Home, Self Care Discharge Date/Time: 06/29/22 19:21
[2022-06-29] MEDS: 0.9% Normal Saline 1,000 ML 1000 ML IV (15:11)
[2022-06-29] MEDS: Ondansetron 4 MG/2 ML Vial IV (15:12)
[2022-06-29] MEDS: Loperamide 2 MG Capsule 4 MG PO (15:13)
[2022-06-29 15:15] LABS: Color, Urine Yellow (Yellow); Glucose, Dipstick Normal (Normal); Ketone-Dipstick 15 mg/dl (Negative); Leukocyte Esterase-Dipstick 25 /ul (Negative); Nitrite-Dipstick Negative (Negative); Occult Blood-Urine 250 /ul (Negative); Protein-Dipstick 30 mg/dl (Negative); Urine Bilirubin Dipstick 1 mg/dL (Negative); Urine Clarity Sl. Cloudy (Clear); Urine Urobilinogen Normal (Normal); Urine pH 6.5 (5.0 - 8.0)
[2022-06-29 16:55] VITALS: BP 91/56; PULSE 78; RESP 17; O2SAT 99
[2022-06-29 18:07] VITALS: BP 108/56; PULSE 73; RESP 16; O2SAT 99
[2022-06-29 19:16] VITALS: BP 112/69; PULSE 82; RESP 17; O2SAT 99
--- NOTE | 2022-06-29 19:21 | ED.RN ---
PT EDUCATED THAT SHE WILL RECEIVE A CALL WITH ANY POSITIVE RESULTS AT DISCHARGE. PT VERBALIZES UNDERSTANDING.
== END 2022-06-29 19:21 | disposition home or self-care (01) ==
PROVIDERS: Emergency Provider Emergency Medicine; PCP Family Medicine; Visit Provider Emergency Medicine
DX: R10.9 Unspecified abdominal pain (principal); E88.89 Other specified metabolic disorders; R11.2 Nausea with vomiting, unspecified; R19.7 Diarrhea, unspecified; E86.0 Dehydration; F17.290 Nicotine dependence, other tobacco product, uncomplicated
CPT/HCPCS: 81002; 87493; 96361; 96374; 99283; J7030; A4216; J2405

== ENCOUNTER 2024-11-08 09:18 | Day surgery (SDC) | payer MEDICAID, SELFPAY ==
[2024-11-08] VITALS (16 sets, daily range): BP systolic 95–119; BP diastolic 65–85; PULSE 51–75; RESP 16; TEMP 36.1–36.4; O2SAT 94–100; BMI 21.0
--- NOTE | 2024-11-08 09:42 | US_ITS ---
PROCEDURE: TRANSVAGINAL W/PREG US 11/08/2024 REASON FOR EXAM: VAGINAL BLEEDING, PAIN TECHNIQUE: TRANSVAGINAL W/PREG US COMPARISON: None FINDINGS: Comments: LMP: September 12, 2024. Number of Gestational Sacs: None Number of Fetuses: None Yolk Sac: Not visualized Uterine Abnormalities: Maternal uterus is unremarkable. Ovaries / Adnexa: 4.1 cm 2.4 cm 1.9 cm complex cyst medial to the left ovary. Measurements: Uterus: 8.8 cm x 5.1 cm x 4 cm with a volume of 93.45 mL Endometrial Thickness: 8 mm Right Ovary: 2.6 cm x 2.4 cm x 1.6 cm with a volume of 5.36 mL. Left Ovary: 1.8 cm x 2.8 cm x 5 cm with a volume of 9.39 mL. Uterus: Anteverted. Normal contour and myometrial echotexture. Endometrium: Normal echotexture. Right ovary: Normal size and echotexture. Left ovary: 4.1 cm 2.4 cm 1.9 cm complex nodule in the left adnexa. Cul-de-sac: Moderate amount of free fluid. US/Transvaginal w/Preg US IMPRESSION: No intrauterine gestational sac is seen. 4.1 cm 2.4 cm 1.9 cm complex nodule in the left adnexa. Moderate amount of free fluid. Clinical correlation and beta HCG correlation recommended. Reading Location: [id number]
--- NOTE | 2024-11-08 09:43 | ED.VIS.FEGU ---
HPI HPI - Female History of Present Illness Chief Complaint: Vag Bld, Preg Narrative Narrative: 24-year-old female G3, P2 at unknown gestational age presents with vaginal bleeding and pelvic cramping that she has had over the last week. It was worse last night to the point where she states she could not even get off the couch. 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 She is not saturating on entire pad within an hour. She relates history that she was at [facility] within the last week. She has had previous ultrasounds, and states that her quantitative beta-hCG's are rising but she continues to have vaginal bleeding. She has had bleeding over the last week as well. No exacerbating or alleviating factors. PFSH PFSH Medical History Depression Chlamydia infection affecting Kidney stones Smoker Home Medications ?Medication ?Instructions ?Recorded ?Last Taken ?Type acetaminophen 500 mg tablet 1,000 mg (2 x 500 mg) PO Q6H PRN 09/18/21 Unknown Rx PRN Pain 1-10 Or Fever #0 tabs ibuprofen 600 mg tablet 600 mg PO Q6H PRN PRN Pain Score 09/18/21 Unknown Rx 1-3 #0 tabs ondansetron 4 mg disintegrating 4 mg PO Q8H PRN PRN Nausea #10 tabs 06/29/22 Unknown Rx tablet Allergy/AdvReac Type Severity Reaction Status Date / Time No Known Allergies Allergy Verified 11/08/24 09:19 Surgical History Hx of tonsillectomy Social History household members: children Smoking Status: Current every day smoker tobacco type: e-cigarettes substance use type: does not use ROS ROS ED ROS Narrative Review of systems positive for vaginal bleeding and pelvic cramping. Positive home test and elevated beta-hCG's at outside hospital. No exacerbating or alleviating factors. Not saturating more than a pad an hour. EXAM Physical Exam Narrative Exam Narrative: Afebrile. Vital signs noted. Nontoxic-appearing. Cardiovascular examination reveals mild bradycardia. Lungs clear to auscultation bilaterally. Abdomen is soft with minimal tenderness to palpation in the suprapubic area without guarding or rebound. Positive bowel sounds. Neurological examination nonfocal nonlateralizing. Skin examination without pallor. Const Vital Signs: 11/08/24 09:19 11/08/24 11:18 11/08/24 13:00 Temperature 97 F L Temperature Source Temporal Pulse Rate 51 L 72 Respiratory Rate 16 16 Blood Pressure 110/81 H 116/78 114/71 Blood Pressure Mean 90 90 85 Pulse Ox 94 98 Oxygen Delivery Method Room Air 11/08/24 14:50 11/08/24 15:12 11/08/24 15:17 Temperature 97.6 F L 97.6 F L Temperature Source Pulse Rate 70 60 60 Respiratory Rate 16 16 Blood Pressure 105/76 95/65 95/65 Blood Pressure Mean 85 Pulse Ox 100 100 Oxygen Delivery Method Room Air MDM MDM MDM Narrative Medical decision making narrative: The differential diagnosis includes but not limited to vaginal bleeding with early versus ectopic versus subchorionic hematoma versus threatened miscarriage. I reviewed the patient's prior ED visits. Additionally, I had a lengthy discussion with her regarding quantitative beta-hCG's. She stated her last beta-hCG at the outside facility was around 900. She states her blood type is O- and that she has already received her RhoGAM shot from the outside facility for her vaginal bleeding this week. I will obtain laboratory work including CBC and CMP as well as ABO Rh and quantitative beta-hCG. I do feel that ultrasound would be indicated in the event that her quantitative beta-hCG has risen to an appropriate level where something would be seen intrauterine on ultrasound. I reviewed her laboratory work and she has a normal white count of 5.3, hemoglobin 12.4, hematocrit 36.7, platelet count 228. Sodium is normal at 139, potassium 3.9, CO2 normal at 24.1, glucose 94. Blood type is O-. She did state that she has already received RhoGAM for vaginal bleeding. Her hCG quantitative measurement is only 701 here. In rediscussion with the patient, she states that she has had 3 beta-hCG's the last 1 being drawn 2 days ago. They were all drawn 2 days apart she states that they have been doubling from 200-400 then 902 days ago. While there can be some variance between laboratories, her quantitative measurement here is 200 below her previous hCG and is trending downward. I reviewed the radiology report of the ultrasound which comments on a 4.1 cm x 2.4 cm x 1.9 complex nodule in the left adnexa. Repeat examination of the abdomen shows tenderness in the suprapubic area. I discussed the patient with Dr. Estrada with [facility] as she states she has been seen by their certified nurse rehab therapy manager Marly Galvan and has been seen there previously as well. Dr. Estrada requested that she be made n.p.o. and she would come see her for evaluation with concern for ectopic . Disposition is to the OR in stable condition. History & Record Review Discussion w/independent historian: Patient Lab Data Attestation: I reviewed the patient's lab results. Labs: Laboratory Results - last 24 hr 11/08/24 11/08/24 09:50 10:20 WBC 5.3 RBC 4.05 L Hgb 12.4 Hct 36.7 L MCV 90.6 MCH 30.6 MCHC 33.8 RDW Std Deviation 40.3 RDW Coeff of Mohamud 12.1 Plt Count 228 MPV 10.7 Immature Gran % (Auto) 0.600 Neut % (Auto) 60.9 Lymph % (Auto) 27.4 [place] % (Auto) 8.8 Eos % (Auto) 1.7 Baso % (Auto) 0.6 Absolute Neuts (auto) 3.2 Absolute Lymphs (auto) 1.44 Nucleated RBC % 0 Sodium 139 Potassium 3.9 Chloride 103 Carbon Dioxide 24.1 Anion Gap 13 BUN 9 Creatinine 0.80 Estim Creat Clear Calc 88.93 Est GFR (MDRD) Non-Af 106 BUN/Creatinine Ratio 11.7 Glucose 94 Calcium 9.8 Total Bilirubin 0.33 AST 27 ALT 25 Alkaline Phosphatase 59 Total Protein 7.4 Albumin 4.7 Globulin 2.6 Albumin/Globulin Ratio 1.8 HCG, Quant 701 H Blood Type Cancelled O NEGATIVE Radiography Diagnostic Testing: Clinical Impression(s) from Imaging Studies Obstetrics Ultrasound 11/08/24 09:42 IMPRESSION: No intrauterine gestational sac is seen. 4.1 cm 2.4 cm 1.9 cm complex nodule in the left adnexa. Moderate amount of free fluid. Clinical correlation and beta HCG correlation recommended. Reading Location: [id number] Discharge Plan Dx/Rx/DC Orders Clinical Impression: of unknown anatomic location, Pelvic pain, Encounter for assessment for suspected ectopic Disposition Disposition: Acute Care Hospital [facility] Discharge Date/Time: 11/08/24 14:51
[2024-11-08 10:20] LABS: Hematocrit 36.7 % (37-47); Hemoglobin 12.4 g/dL (12.0-15.0); Immature Granulocytes Count 0.030 X10^3/uL (0.0-0.0); Mean Corp Hgb Conc 33.8 g/dL (32-36); Mean Corpuscular Volume 90.6 fL (81-99); Mean Platelet Vol. 10.7 fl (6.2-12.0); NRBC Flagged by Analyzer 0 % (0-5); Platelet Count 228 K/mm3 (150-450); RBC Distribution Width CV 12.1 % (11.6-14.6); RBC Distribution Width SD 40.3 fl (35.1-43.9); Red Blood Count 4.05 M/mm3 (4.2-5.4); White Blood Count 5.3 K/mm3 (4.4-11.0)
--- NOTE | 2024-11-08 10:45 | CM.ED ---
Social work Reason for referral: no PCP Referral source: case find SW identified patient's lack of PCP and need for resources. SW entered patient's room, introducing self and role at [facility]. Patient welcomed SW visit and patient stated already having a PCP in [place], but forgetting PCP's name. Patient denied needing any resources or supports at this time. Kathy Shelton, ULTRASOUND COORDINATOR, [employer]
[2024-11-08 10:48] LABS: AST(SGOT) 27 U/L (<=31); Alanine Aminotransfer ALT/SGPT 25 U/L (<=34); Albumin, Serum 4.7 g/dL (3.5-5.0); Alkaline Phosphatase 59 U/L (35-104); Anion Gap 13 (5-15); BUN 9 mg/dL (4-19); BUN/Creat Ratio 11.7 RATIO (10-20); Calcium,Total 9.8 mg/dL (7.6-11.0); Carbon Dioxide 24.1 mmol/L (21.0-32.0); Chloride 103 mmol/L (98-108); Estimated Creatinine Clearance 88.93 ml/min (50-250); Globulin 2.6 g/dL (2.2-4.2); Glucose 94 mg/dL (70-99); Potassium 3.9 mmol/L (3.3-5.1)
[2024-11-08 10:57] LABS: hCG Titer Quant., Serum 701 mIU/mL (<9 non-preg)
--- NOTE | 2024-11-08 14:45 | FAL_PTH ---
PATIENT: JOCELYN SOLORZANO [place] [facility] [id number] AGE/SX: 24/F ROOM: RE11/08/[address]: Dr. Lianet Lockwood, MDDOB: 2000 BED: DIS: 11/08/2024 SPEC #: [id number] RECD: 11/09/24 07:54 STATUS: SEEMA NICHOLAS #: [id number] JOSE M: 11/08/24 14:[address]: Lianet Lockwood DEPT: SURGICAL PATHOLOGY RECD BY: Boogie Molina ENTERED: 11/09/24 10:31 SP TYPE: ECTOPIC OTHR DR: No Primary Care Phys Tissues: A - ECTOPIC PREG Procedures: Surgery Specimen Level IV HEADER OPERATION: Laparoscopic, removal ectopic , left salpingectomy PRE-OP DIAGNOSIS: Ectopic TISSUE SUBMITTED: A- Left fallopian tube, ectopic MICROSCOPIC DIAGNOSIS A. Left fallopian tube, removal ectopic , left salpingectomy: - Fallopian tube with distended lumen containing blood clot - see note. Note: No products of conception are identified in the original blocks submitted for histologic examination (A1-3). Additional tissue will be submitted and an addendum report will follow. MICROSCOPIC DESCRIPTION Slides are reviewed. GROSS DESCRIPTION A. Received in formalin labeled with the patient's name and date of . Designated as left fallopian tube, ectopic is a pratt-pink, disrupted, fimbriated fallopian tube collectively measuring 5.9 cm in length by 0.3-1.1 cm in diameter. There is a minimal amount of attached blood clot near the fimbria. Sectioning reveals hemorrhagic luminal contents distally. [place] sections are submitted in 3 cassettes, to include the entirety of the blood clot. AR 11/09/2024 A. The remainder of the specimen is submitted in cassettes A4-A5, following histopathologic review AR 11/14/2024 [facility]:[id number] ADDENDUM ADDENDUM ADDENDUM ADDENDUM ADDENDUM ADDENDUM ADDENDUM ADDENDUM 11/17/2024 16:53 ADDENDUM 11/17/2024 16:53 ADDENDUM 11/17/2024 16:53 ADDENDUM 11/17/2024 16:53 ADDENDUM 11/17/2024 16:53 This addendum is to report the findings of the additional tissue submitted at [facility]: The remaining fallopian tube tissue was submitted in blocks A4, A5. Recuts of A1, A2, A3 also examined. Focal stromal change suggestive of decidual change with possible rare trophoblast observed in a recut section of the original block A3. No chorionic villi or definitive products of conception observed.
--- NOTE | 2024-11-08 14:51 | PCM.HP.STD ---
HPI - General General Date of Service: 11/08/24 HPI Narrative JOCELYN SOLORZANO, is a 24 F who presents to [facility] ER with pelvic pain and vaginal bleeding. Patient reports was seen at [facility] last week for the same complaints with abdominal pain. Patient states abdominal pain got worse last night rated a 10 out of 10 was unable to get off of the couch. She states her pain today is a 7 out of 10. She describes her pain as centrally located below the umbilicus to the pubic area. She denies any dizziness chest pain or shortness of breath. Patient reports that she has 2 children ages 7 years old and 3 years old. Patient reports both were vaginal deliveries without complications. Patient states she had a history of chlamydial infection approximately 1 year ago. Patient does not desire future children at this time. Patient reports was using control the NuvaRing however she forgot to steel pickler a refill and then found that she was . PFSH Medical History Depression Chlamydia infection affecting Kidney stones Smoker Home Medications ?Medication ?Instructions ?Recorded ?Last Taken ?Type acetaminophen 500 mg tablet 1,000 mg (2 x 500 mg) PO Q6H PRN 09/18/21 Unknown Rx PRN Pain 1-10 Or Fever #0 tabs ibuprofen 600 mg tablet 600 mg PO Q6H PRN PRN Pain Score 09/18/21 Unknown Rx 1-3 #0 tabs ondansetron 4 mg disintegrating 4 mg PO Q8H PRN PRN Nausea #10 tabs 06/29/22 Unknown Rx tablet Allergy/AdvReac Type Severity Reaction Status Date / Time No Known Allergies Allergy Verified 11/08/24 09:19 Surgical History Hx of tonsillectomy Social History household members: children Smoking Status: Current every day smoker tobacco type: e-cigarettes substance use type: does not use Vital Signs Vital Signs Vital Signs: 11/08/24 09:19 11/08/24 11:18 11/08/24 13:00 Temperature 97 F L Temperature Source Temporal Pulse Rate 51 L 72 Respiratory Rate 16 16 Blood Pressure 110/81 H 116/78 114/71 Blood Pressure Mean 90 90 85 Pulse Ox 94 98 Oxygen Delivery Method Room Air 11/08/24 14:50 Temperature 97.6 F L Temperature Source Pulse Rate 70 Respiratory Rate 16 Blood Pressure 105/76 Blood Pressure Mean 85 Pulse Ox 100 Oxygen Delivery Method Weight Weight: 53.841 kg Body Mass Index (BMI) 21.0 Physical Exam Narrative Abdomen: Tender to palpation diffuse more under the umbilicus and lower quadrants. Mild guarding no rebound. Const alert and oriented x3 General Appearance: cooperative HEENT normocephalic GI GI Narrative: Gravid, non tender to palpation. OB / External & Speculum: external exam normal Extremity normal to inspection Skin no rashes or lesions noted Neuro oriented x3 and CN's II-XII intact bilaterally Psych Appearance: grossly normal Results Lab / Micro Data 11/08/24 09:50 11/08/24 09:50 Labs: Laboratory Results - last 24 hr 11/08/24 09:50: WBC 5.3, RBC 4.05 L, Hgb 12.4, Hct 36.7 L, MCV 90.6, MCH 30.6, MCHC 33.8, RDW Std Deviation 40.3, RDW Coeff of Mohamud 12.1, Plt Count 228, MPV 10.7, Immature Gran % (Auto) 0.600, Neut % (Auto) 60.9, Lymph % (Auto) 27.4, Woodward % (Auto) 8.8, Eos % (Auto) 1.7, Baso % (Auto) 0.6, Absolute Neuts (auto) 3.2, Absolute Lymphs (auto) 1.44, Nucleated RBC % 0, Sodium 139, Potassium 3.9, Chloride 103, Carbon Dioxide 24.1, Anion Gap 13, BUN 9, Creatinine 0.80, Estim Creat Clear Calc 88.93, Est GFR (MDRD) Non-Af 106, BUN/Creatinine Ratio 11.7, Glucose 94, Calcium 9.8, Total Bilirubin 0.33, AST 27, ALT 25, Alkaline Phosphatase 59, Total Protein 7.4, Albumin 4.7, Globulin 2.6, Albumin/Globulin Ratio 1.8, HCG, Quant 701 H, Blood Type Cancelled 11/08/24 10:20: Blood Type O NEGATIVE Imaging Radiology Impression Obstetrics Ultrasound 11/08/24 09:42 IMPRESSION: No intrauterine gestational sac is seen. 4.1 cm 2.4 cm 1.9 cm complex nodule in the left adnexa. Moderate amount of free fluid. Clinical correlation and beta HCG correlation recommended. Reading Location: [facility] Assessment & Plan Assessment/Plan (1) of unknown anatomic location: (2) Vaginal bleeding affecting early : (3) Pelvic pain affecting : (4) Free fluid in pelvis: (5) Encounter for assessment for suspected ectopic : PLAN: Plan Suspected ruptured ectopic 1) reviewed risks of ectopic - discussed option for Diagnostic laparoscopy with removal of ectopic. discussed possible removal of fallopian tube or other site where ectopic could be implanted. pt agreeable to proceed with surgery. 2) Consent signed. Risks of surgery including bleeding, infection, injury to pelvic structures including bladder bowel and vessel were discussed with the patient. 3) pt agrees to transfusion if indicated. 4) likely dc home after surgery- post op instructions reviweed
[2024-11-08] MEDS: Lactated Ringers 1,000 ML 15 ML IV (15:11)
--- NOTE | 2024-11-08 15:17 | PCM.PRE.AN2 ---
ASA Classification* ASA Classification ASA Classification: 1 and E Assessment & Plan Anesthesia* Anesthesia Assessment Anesthesia Assessment: Discussed sedation and/or anesthesia options, risks, benefits, and alternatives with patient/parents/legal guardian/POA. Questions invited. The patient/parents/legal guardian/POA seems to understand and agrees to proceed with anesthesia plan. Reviewed the physical assessment, medical history, allergy history and patient home medications list prior to surgery/procedure/anesthetic and documented any changes. Performed airway and anesthesia risk assessments. Anesthesia Type Anesthesia Type: General History Source History Obtained from:: Patient and Chart Anesthesia Focused Assessment* Temperature: 97.6 F Pulse Rate: 60 Blood Pressure: 95/65 Respiratory Rate: 16 Pulse Ox: 100 Oxygen Delivery Method: Room Air Airway Assessment Mouth opens: >3 cm Mallampati Score: II Teeth Condition: Intact Neck Range of motion (ROM): Full ROM Labs Anesthesia Preop lab: CBC WBC 5.3 K/mm3 (4.4-11.0) 11/08/24 09:50 11/08/24 RBC 4.05 M/mm3 (4.2-5.4) L 11/08/24 09:50 11/08/24 Hgb 12.4 g/dL (12.0-15.0) 11/08/24 09:50 11/08/24 Hct 36.7 % (37-47) L 11/08/24 09:50 11/08/24 Plt Count 228 K/mm3 (150-450) 11/08/24 09:50 11/08/24 CHEMISTRY Potassium 3.9 mmol/L (3.3-5.1) 11/08/24 09:50 11/08/24 Sodium 139 mmol/L (133-145) 11/08/24 09:50 11/08/24 BUN 9 mg/dL (4-19) 11/08/24 09:50 11/08/24 Creatinine 0.80 mg/dL (0.70-1.20) 11/08/24 09:50 11/08/24 Glucose 94 mg/dL (70-99) 11/08/24 09:50 11/08/24 COAG HCG, Quant 701 mIU/mL (<9 non-preg) H 11/08/24 09:50 11/08/24 Urine Test Positive Negative H 01/18/21 22:10 01/18/21 Pre-Assessment Diagnosis/Proposed Procedure Planned Operative Procedure(s): Exploratory laparoscopy Anesthesia History 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 When Was Last Pacemaker Check QUESTION #4 FULL TEXT: You/Your Family Experience fever (hyperthermia) with Anesthesia Last Oral Intake Last Oral intake: Last Oral Intake NPO since Meds taken in AM with sips of water? Meds patient instructed to take am of surgery PONV PONV - math and science instructor: PONV - math and science instructor Female HX of Motion Sickness HX of N/V After Surgery Non-Smoker Duration of Surgery greater than 60 minutes Number of Risk Factors PONV Score Height & Weight Height & Weight: Anesthesia: Height & Weight Height 5 ft 3 in 11/08/24 09:19 Weight: 53.841 kg 11/08/24 09:19 Body Mass Index (BMI) 21.0 11/08/24 09:19 Respiratory Assessment Respiratory Assessment - math and science instructor: Respiratory Tract Infection Hx - math and science instructor Hx Respiratory Tract Infection STOP Sleep Apnea STOP Sleep Apnea - math and science instructor: STOP Sleep Apnea - math and science instructor Hx Hypertension Hx Sleep Apnea CPAP BIPAP Do you snore loudly (louder than talking or can be heard Do you often feel tired/ fatigued/ sleepy during daytime? Has anyone observed you stop breathing during sleep? STOP Results QUESTION #5 FULL TEXT : Do you snore loudly (louder than talking or can be heard through closed doors)? 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 Specify any problems Hx of Preganancy in last 3 Months Nurse Filling Out Transfusion & Questions: Date: Time: Patient unable to answer at this time (ie. 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: /Reproductive Hx- math and science instructor Hx Now Yes 11/08/24 10:11 Gestational Age (in weeks): EDC: Hx Hx Para Hx Section SAB No 11/08/24 09:19 Active Medications Active Medications: Current Medications Generic Name Dose Route Start Last Admin Trade Name Freq PRN Reason Stop Dose Admin Lactated Ringer's 1,000 mls @ 15 mls/hr 11/08/24 15:00 11/08/24 15:11 IV 15 mls/hr .Q48H ROCKY Administration PFSH Medical History Depression Chlamydia infection affecting Kidney stones Smoker Home Medications ?Medication ?Instructions ?Recorded ?Last Taken ?Type acetaminophen 500 mg tablet 1,000 mg (2 x 500 mg) PO Q6H PRN 09/18/21 Unknown Rx PRN Pain 1-10 Or Fever #0 tabs ibuprofen 600 mg tablet 600 mg PO Q6H PRN PRN Pain Score 09/18/21 Unknown Rx 1-3 #0 tabs ondansetron 4 mg disintegrating 4 mg PO Q8H PRN PRN Nausea #10 tabs 06/29/22 Unknown Rx tablet Allergy/AdvReac Type Severity Reaction Status Date / Time No Known Allergies Allergy Verified 11/08/24 09:19 Surgical History Hx of tonsillectomy Social History household members: children Smoking Status: Current every day smoker tobacco type: e-cigarettes substance use type: does not use Review of Systems (Anesthesia) ROS Narrative System reviewed and no additional complaints, except as documented.
[2024-11-08] MEDS: Midazolam 2 MG/2 ML Syringe IV (15:28)
[2024-11-08] MEDS: Lidocaine 1% (5 ml sdv) 5 ML Vial IV (15:31)
--- NOTE | 2024-11-08 16:02 | DCINST_ITS ---
Discharge Instructions DC O2, CPAP, BIPAP needs Home O2 Discharge instructions: No Dressing / Incision May resume sexual activity in: 2 weeks Lifting Restrictions: 20-25 lbs Dressing / Incision Call your doctor if your incision/area has: Continuous Slow Oozing, Sudden Increased Bleeding, Increased Pain/ Swelling, Increased Redness, Foul Smelling Discharge and Swelling at the incision site Call your doctor if you observe: Fever of 101 or Higher, Inability to urinate, Inability to have a bowel movement, Using more than 1 pad per hour and Uncontrolled pain Additional Dressing/Incision Instructions:: You have skin glue over your incision sites, do not pick off. You may shower and let the soap and water run over the incision sites and dab dry. Follow Up Care Please Follow Up With: Lianet Lockwood MD When: I will call you with pathology results in 1-2 weeks, if you need an appointment to be seen please call [phone] Test Results: Test results from this visit will be discussed in further detail at your follow- up appointment, if applicable. Discharge Plan Admission Attending Provider: Lianet Lockwood Primary Care Provider: Care Physician,No Primary Instructions Print Language: Ugandan Discharge Orders/Prescriptions Prescriptions: No Action acetaminophen 500 mg Tablet 1,000 mg PO Q6H PRN PRN (Reason: Pain 1-10 Or Fever) Qty: 0 0RF ibuprofen 600 mg Tablet 600 mg PO Q6H PRN PRN (Reason: Pain Score 1-3) Qty: 0 0RF ondansetron [ondansetron] 4 mg tablet,disintegrating 4 mg PO Q8H PRN PRN (Reason: Nausea) Qty: 10 0RF Referrals / Follow Up: Greg Arriaga MD [Non-Staff] - Disposition Disposition (needs filled in before D/C Order can be placed): Home, Self Care
[2024-11-08] MEDS: fentaNYL 100 MCG/2 ML Ampul 200 MCG IV (16:06)
--- NOTE | 2024-11-08 16:21 | PCM.OPRPT ---
Operative Report (Standard) Operative Information Date of Procedure: 11/08/24 Pre-Operative Diagnosis: suspected ruptured ectopic - Pelvic pain, vaginal bleeding in early , of unknown location Post-Operative Diagnosis: left tubal , ruptured ectopic Surgery/Procedure Performed: laparoscopic left salpingectomy volcanology professor: Yes Last Ironer: Chrissie Ward Tasks completed by court assistant: Opening & closing, Dissecting tissue and Retracting Additional orthopedic assistant?: Yes Additional Windows Server Administrator #2: Mariana Davey Tasks completed by orthopedic assistant #2: Closing Type of Anesthesia: General and Local RN Documented Start/Stop Times: Operation Date: 11/08/24 14:45 Case Time Into Pre-Op 11/08/24 14:52 Anesthesia Start 11/08/24 15:27 Into Room 11/08/24 15:27 Procedure Start 11/08/24 15:41 Procedure Start Time: 15:41 Procedure Stop Time: 16:09 Select all DRAINS/GRAFTS/IMPLANTS that apply: None Special Medications: 0.5% marcaine Estimated Blood Loss: 10cc Fluids Replaced: 500cc Specimen collected: Yes Description of specimen(s) removed: bilateral fallopian tubes Description of surgery: After informed consent was obtained patient was taken to the operating room she was placed in supine position she was given anesthesia. She was then placed in the [facility] stirrups and she was prepped and draped in normal sterile fashion. Bladder was drained prior to the start of procedure. At this time attention was turned to the vaginal portion where weighted speculum placed at posterior fornix vagina single-tooth tenaculum was used to gently grasp the internal the cervix. uterus was gently sounded to approximately 8cm. Uterine manipulator was placed without difficulty. Legs then placed in parallel with the abdomen the tenaculum and the weighted speculum were removed. 2 towel clamps were placed at level of umbilicus. Marcaine was injected infraumbilical and a small incision was made. The 5 mm trocar was placed under direct visualization. CO2 gas was used to insufflate the intra-abdominal cavity. Upon inspection moderate amount of hemoperitoneum was noted with left tubal ectoic noted- with active bleeding. At this time then the LLQ and RLQ ports were placed First Marcaine was injected and small incision was made a knife and the 5 mm trocars were placed. At this time i tried to remove ectopic without perfroming salpingectomy but unable- decision for removal of left tube. Ligasture was used to coagulate and ligate along mesosalpinx on left until tube removed completely. Good hemostasis was appreciated. The specimen was placed in 8mm bag through RLQ port. the Port site was then closed with figure of 9 0-vicryl on UR6 needle. At this time procedure was deemed complete successful. Irrigation of pelvis performed. The gas was desufflated on from the intra-abdominal cavity. The trochars were removed. Skin was closed using 4-0 Monocryl in a subcutaneous fashion. Dermabond glue was placed. Instrument lap and needle counts were correct ?2. The uterine manipulator was removed. Vaginal sweep was performed it was negative. There were no complications anticipated normal postoperative course for this patient. Surgical Findings: left fallopian tube ruptured ectopic Complications Complications: No Admit VTE Documentation VTE Present on Admission: Yes VTE Mechan Device Prophylaxis: SCD's VTE Pharm Prophylaxis ordered?: No Reason prophylaxis not ordered: Treatment Not Indicated
--- NOTE | 2024-11-08 16:29 | PCM.POST.ANE ---
Anesthesia: Postop Eval I Current Vital Signs Temperature: 97 F Pulse Rate: 64 Blood Pressure: 114/85 Respiratory Rate: 16 Pulse Ox: 100 Oxygen Delivery Method: Room Air Assessment Airway patent: Yes Spontaneous unlabored respirations: Yes Mental status: Awake and Calm nausea: No Vomiting: No Anesthesia Complication: No Fluid Hydration Crystalloid volume administer (ml): 700 Total IV fluid infused: 700 Progress Note Anesthesia document: Postop Eval 1 completed: Yes
--- NOTE | 2024-11-08 17:55 | SUR.PHASEII ---
PATIENT HAD SEVERAL QUESTIONS FOR DR LORD WHO RESPONDED WITH THE FOLLOWING: PATIENT TO ALTERNATE TYLENOL & IBUPROFEN, MAY TAKE SIMETHECONE IF NEEDED FOR GAS PAIN. LIFTING RESTRICTION FOR ONE WEEK. MAY BE OFF WORK FOR ONE WEEK, CALL IF PATIENT FEELS LIKE SHE NEEDS ADDITIONAL TIME OFF. PATIENT VERBALIZES UNDERSTANDING AND AGREEABLE.
[2024-11-08] MEDS: HYDROcodone Bitartrate/Apap 5/325 Tablet PO (18:07)
== END 2024-11-08 18:30 | disposition home or self-care (01) ==
LOC: ED 14:40 → SDC 14:51 → ACINP 14:52
PROVIDERS: Emergency Provider Emergency Medicine; Visit Provider Obstetrics & Gynecology
PROC: 10T24ZZ Resection of Products of Conception, Ectopic, Percutaneous Endoscopic Approach (ICD-10-PCS; CPT 59150; principal; 2024-11-08 14:30)
DX: O00.102 Left tubal pregnancy without intrauterine pregnancy (principal); F17.290 Nicotine dependence, other tobacco product, uncomplicated; O99.330 Smoking (tobacco) complicating pregnancy, unspecified trimester
CPT/HCPCS: 58661; 00840; 76817; 80053; 84702; 85025; 86900; 86901; 88305; 99284; A4216; J2405